=== PATIENT | male | born 1965 | race Caucasian/White ===

== ENCOUNTER 2017-07-08 16:26 | Emergency (ER) | payer OTHER ==
[~2017-07-08] VITALS: Ht 180.3 cm; Wt 122.5 kg
[~2017-07-08 16:26] MED LIST: ALPR.5 PO; Cleocin HCl150 MG PO; DOCU100 PO; ETOD200 PO; GABA300 PO; Norco 5-325 Ta1 EACH PO; OXYC5 PO; XARELTO10 MG PO; Zofran Odt4 MG SL
[2017-07-08 17:10] LABS: BASOPHILS ABSOLUTE AUTO 0.03 K/mm3 (0.00-0.23); BASOPHILS PERCENT AUTO 1 % (0-2); EOSINOPHILS ABSOLUTE AUTO 0.14 K/mm3 (0.00-0.68); EOSINOPHILS PERCENT AUTO 3 % (0-6); Hematocrit 39.9 % (37.0-53.0); Hemoglobin 13.9 g/dL (13.5-17.5); IMMATURE GRAN ABSOLUTE AUTO 0.01 K/mm3 (0.00-0.10); IMMATURE GRAN PERCENT AUTO 0 % (0-1); LYMPHOCYTES ABSOLUTE AUTO 1.24 K/mm3 (0.84-5.20); LYMPHOCYTES PERCENT AUTO 28 % (21-46); MONOCYTES ABSOLUTE AUTO 0.29 K/mm3 (0.16-1.47); MONOCYTES PERCENT AUTO 7 % (4-13); Mean Corpuscular HGB 32.7 pg (26.0-34.0); Mean Corpuscular HGB Conc 34.8 g/dL (31.5-36.5); Mean Corpuscular Volume 94 fL (80-100); Mean Platelet Volume 11.1 fL (9.1-12.4); NEUTROPHILS ABSOLUTE AUTO 2.65 K/mm3 (1.96-9.15); NEUTROPHILS PERCENT AUTO 61 % (41-73); Platelet Count 52 K/mm3 (150-400); RDW Coefficient Variation 14.3 % (11.7-14.2); RDW Standard Deviation 48.9 fL (35.1-46.3); Red Blood Cell Count 4.25 M/mm3 (4.30-5.90); White Blood Cell Count 4.36 K/mm3 (4.00-11.30)
[2017-07-08 17:25] LABS: Alanine Aminotransfer (ALT/SGP 186 U/L (12-78); Albumin, Blood 3.1 g/dL (3.4-5.0); Albumin/Globulin Ratio 0.7 (0.8-1.8); Alk Phos 140 U/L (50-136); Anion Gap 10 mmol/L (6-16); Aspartate Aminotrans (AST/SGOT 153 U/L (12-37); Bilirubin, Total 0.7 mg/dL (0.1-1.0); Blood Urea Nitrogen 10 mg/dL (8-24); Bun/Creatinine Ratio 11.9 (12.0-20.0); CO2, Blood 24 mmol/L (21-32); Calcium, Blood 8.2 mg/dL (8.5-10.1); Chloride, Blood 108 mmol/L (98-108); Creatinine, Blood 0.84 mg/dL (0.60-1.20); Globulin, Blood 4.6 g/dL (2.2-4.0); Glomerular Filtration Rate >60 (60-); Glucose, Blood 116 mg/dL (70-99); Potassium, Blood 3.5 mmol/L (3.5-5.5); Sodium, Blood 142 mmol/L (136-145); Total Protein, Blood 7.7 g/dL (6.4-8.2); Troponin I <0.015 ng/mL (0.000-0.040)
[2017-09-11] MEDS ORDERED: DICL25ER (13:58)
[2017-09-11] MEDS ORDERED: ALBU90OI61 (13:58)
[2017-09-11] MEDS ORDERED: ALLO100 (13:59)
[2017-09-11] MEDS ORDERED: OMEPRAZOLE MAGN20 MG (13:59)
[2018-05-01] MEDS ORDERED: ASPI81CH PO (23:40)
[2018-05-02] MEDS ORDERED: BENZ100A PO (00:33)
[2018-05-02] MEDS ORDERED: LEVO750 PO (00:33)
== END 2017-07-08 19:31 | disposition home or self-care (01) ==
LOC: ER 16:26
PROVIDERS: Emergency Medicine
DX: K74.60 Unspecified cirrhosis of liver (principal); K76.6 Portal hypertension; R00.2 Palpitations; R74.0 Nonspecific elevation of levels of transaminase and lactic acid dehydrogenase [LDH]; Z88.8 Allergy status to other drugs, medicaments and biological substances; Z88.5 Allergy status to narcotic agent; Z87.891 Personal history of nicotine dependence
CPT/HCPCS: 36415; 71046; 71260; 74160; 80053; 83690; 84484; 85025; 93005; 93010; 99284; Q9967

== ENCOUNTER 2017-09-19 10:43 | Day surgery (SDC) | payer OTHER ==
[~2017-09-19] VITALS: Ht 180.3 cm; Wt 137.6 kg
[~2017-09-19 10:43] MED LIST changes: +ALBU90OI61; +ALLO100; +DICL25ER; +OMEPRAZOLE MAGN20 MG
[2018-05-01] MEDS ORDERED: ASPI81CH PO (23:40)
[2018-05-02] MEDS ORDERED: BENZ100A PO (00:33)
[2018-05-02] MEDS ORDERED: LEVO750 PO (00:33)
== END 2017-09-19 12:26 | disposition home or self-care (01) ==
LOC: ORSCSDS 10:43
PROVIDERS: Internal Medicine Gastroenterology
PROC: 0DB68ZX Excision of Stomach, Via Natural or Artificial Opening Endoscopic, Diagnostic (ICD-10-PCS; principal; 2017-09-19 12:15)
DX: K74.60 Unspecified cirrhosis of liver (principal); I85.00 Esophageal varices without bleeding; B96.81 Helicobacter pylori [H. pylori] as the cause of diseases classified elsewhere; K29.70 Gastritis, unspecified, without bleeding; K31.9 Disease of stomach and duodenum, unspecified; B19.20 Unspecified viral hepatitis C without hepatic coma; K92.1 Melena; J44.9 Chronic obstructive pulmonary disease, unspecified; Z87.891 Personal history of nicotine dependence; Z68.41 Body mass index [BMI] 40.0-44.9, adult; E66.01 Morbid (severe) obesity due to excess calories; Z79.899 Other long term (current) drug therapy
CPT/HCPCS: 88305; 88342; J7120

== ENCOUNTER → 2018-02-14 | Outpatient (CLI) | payer OTHER | LOC: LAB SHORT 11:00 → LAB 11:00 | DX: F22 Delusional disorders (principal); R10.13 Epigastric pain | CPT/HCPCS: 87338 ==

== ENCOUNTER → 2018-10-15 | Outpatient (CLI) | payer OTHER ==
[~2018-10-15] MED LIST changes: +ASPI81CH PO; +BENZ100A PO; +LEVO750 PO
== END | disposition home or self-care (01) ==
LOC: LAB SHORT 15:47 → LAB 15:47 → LAB FUT 10-11 15:35
DX: F22 Delusional disorders (principal)
CPT/HCPCS: 87177; 87209

== ENCOUNTER 2019-06-11 18:59 | Emergency (ER) | payer OTHER ==
[~2019-06-11] VITALS: Ht 180.3 cm; Wt 140.2 kg
[2019-06-11 19:46] LABS: BASOPHILS ABSOLUTE AUTO 0.04 K/mm3 (0.00-0.23); BASOPHILS PERCENT AUTO 1 % (0-2); EOSINOPHILS ABSOLUTE AUTO 0.19 K/mm3 (0.00-0.68); EOSINOPHILS PERCENT AUTO 3 % (0-6); Hematocrit 44.4 % (37.0-53.0); Hemoglobin 15.5 g/dL (13.5-17.5); IMMATURE GRAN ABSOLUTE AUTO 0.02 K/mm3 (0.00-0.10); IMMATURE GRAN PERCENT AUTO 0 % (0-1); LYMPHOCYTES ABSOLUTE AUTO 1.43 K/mm3 (0.84-5.20); LYMPHOCYTES PERCENT AUTO 25 % (21-46); MONOCYTES ABSOLUTE AUTO 0.29 K/mm3 (0.16-1.47); MONOCYTES PERCENT AUTO 5 % (4-13); Mean Corpuscular HGB 32.6 pg (26.0-34.0); Mean Corpuscular HGB Conc 34.9 g/dL (31.5-36.5); Mean Corpuscular Volume 93 fL (80-100); Mean Platelet Volume 11.5 fL (9.1-12.4); NEUTROPHILS ABSOLUTE AUTO 3.87 K/mm3 (1.96-9.15); NEUTROPHILS PERCENT AUTO 66 % (41-73); RDW Coefficient Variation 13.9 % (11.7-14.2); RDW Standard Deviation 47.5 fL (35.1-46.3); Red Blood Cell Count 4.76 M/mm3 (4.30-5.90); White Blood Cell Count 5.84 K/mm3 (4.00-11.30)
[2019-06-11] MEDS ORDERED: RIFA550T2 PO (19:49)
[2019-06-11] MEDS ORDERED: PRINIVIL10 MG PO (19:49)
[2019-06-11 20:06] LABS: Alanine Aminotransfer (ALT/SGP 77 U/L (12-78); Albumin, Blood 3.7 g/dL (3.4-5.0); Albumin/Globulin Ratio 0.8 (0.8-1.8); Alk Phos 105 U/L (50-136); Anion Gap 7 mmol/L (6-16); Aspartate Aminotrans (AST/SGOT 60 U/L (12-37); Bilirubin, Total 1.3 mg/dL (0.1-1.0); Blood Urea Nitrogen 12 mg/dL (8-24); Bun/Creatinine Ratio 14.1 (12.0-20.0); CO2, Blood 25 mmol/L (21-32); Calcium, Blood 8.9 mg/dL (8.5-10.1); Chloride, Blood 110 mmol/L (98-108); Creatinine, Blood 0.85 mg/dL (0.60-1.20); Ethanol (Alcohol), Blood, Med <3 mg/dL; Globulin, Blood 4.4 g/dL (2.2-4.0); Glomerular Filtration Rate >60 (60-); Glucose, Blood 126 mg/dL (70-99); Potassium, Blood 3.7 mmol/L (3.5-5.5); Sodium, Blood 142 mmol/L (136-145); Total Protein, Blood 8.1 g/dL (6.4-8.2)
[2019-06-11 20:10] LABS: Platelet Count 48 K/mm3 (150-400)
== END 2019-06-11 21:34 | disposition home or self-care (01) ==
LOC: ER 18:59
PROVIDERS: Physician Assistant
DX: F15.950 Other stimulant use, unspecified with stimulant-induced psychotic disorder with delusions (principal); K42.9 Umbilical hernia without obstruction or gangrene; K74.60 Unspecified cirrhosis of liver; Z87.891 Personal history of nicotine dependence; Z88.5 Allergy status to narcotic agent; Z88.8 Allergy status to other drugs, medicaments and biological substances; Z79.82 Long term (current) use of aspirin; Z79.899 Other long term (current) drug therapy
CPT/HCPCS: 36415; 71045; 74018; 80053; 83690; 85025; 96360; 99283-25; G0480; J7030

== ENCOUNTER 2023-08-01 15:19 | Inpatient (IN) | payer OTHER ==
[~2023-08-01] VITALS: Ht 180.3 cm; Wt 114.3 kg
[~2023-08-01 15:19] MED LIST changes: +Norco 10-325 T1 EACH PO; +PRINIVIL10 MG PO; +RIFA550T2 PO
[2023-08-01 15:57] LABS: BASOPHILS ABSOLUTE AUTO 0.03 K/mm3 (0.00-0.23); BASOPHILS PERCENT AUTO 1 % (0-2); EOSINOPHILS PERCENT AUTO 3 % (0-6); Hematocrit 42.6 % (37.0-53.0); Hemoglobin 14.9 g/dL (13.5-17.5); IMMATURE GRAN ABSOLUTE AUTO 0.01 K/mm3 (0.00-0.10); IMMATURE GRAN PERCENT AUTO 0 % (0-1); LYMPHOCYTES ABSOLUTE AUTO 0.51 K/mm3 (0.84-5.20); LYMPHOCYTES PERCENT AUTO 14 % (21-46); MONOCYTES ABSOLUTE AUTO 0.17 K/mm3 (0.16-1.47); MONOCYTES PERCENT AUTO 5 % (4-13); Mean Corpuscular HGB 31.8 pg (26.0-34.0); Mean Corpuscular Volume 91 fL (80-100); Mean Platelet Volume 11.7 fL (9.1-12.4); NEUTROPHILS ABSOLUTE AUTO 2.83 K/mm3 (1.96-9.15); NEUTROPHILS PERCENT AUTO 78 % (41-73); RDW Coefficient Variation 14.5 % (11.7-14.2); RDW Standard Deviation 47.6 fL (35.1-46.3); Red Blood Cell Count 4.69 M/mm3 (4.30-5.90); White Blood Cell Count 3.65 K/mm3 (4.00-11.30)
[2023-08-01 16:14] LABS: Albumin, Blood 3.2 g/dL (3.4-5.0); Albumin/Globulin Ratio 0.7 (0.8-1.8); Bilirubin, Total 0.8 mg/dL (0.1-1.0); Bun/Creatinine Ratio 11.9 (12.0-20.0); Calcium, Blood 9.4 mg/dL (8.5-10.1); Creatinine, Blood 0.68 mg/dL (0.60-1.20); Globulin, Blood 4.3 g/dL (2.2-4.0); Potassium, Blood 3.7 mmol/L (3.5-5.5); Total Protein, Blood 7.5 g/dL (6.4-8.2)
[2023-08-01 16:19] LABS: Platelet Count 47 K/mm3 (150-400)
[2023-08-01] MEDS ORDERED: NS 1,000 ML IV SCH (18:15)
[2023-08-01] MEDS ORDERED: Metoclopramide HCl 5MG / ML 2ML Vial IV ONE (18:15)
[2023-08-01 18:37] LABS: Base Excess Venous -0.3 mmol/L; Bicarbonate Venous 24.4 mmol/L (24.0-30.0); PCO2 Venous 36.7 mmHg (38-42); pH Blood Venous 7.43 (7.34-7.37)
[2023-08-01 18:51] LABS: Source, Urine Clean Catch
[2023-08-01 18:59] LABS: Appearance, Urine Clear (Clear); Bilirubin, Urine Neg (Neg); Blood, Urine Neg (Neg); Color, Urine Yellow (P-Yellow); Glucose Qualitative, Urine Neg (Neg); Ketones, Urine Neg (Neg); Leukocyte Esterase, Urine Neg (Neg); Nitrite, Urine Neg (Neg); Protein, Urine Neg (Neg); Specific Gravity, Urine 1.015 (1.003-1.022); Urobilinogen, Urine NORM (Normal)
[2023-08-01] MEDS ORDERED: FentaNYL Citrate 50 MCG/ML 2 ML Injection IV ONE (20:15)
[2023-08-01] MEDS ORDERED: Clarify Drug Order XX ONE (20:40)
[2023-08-01] MEDS ORDERED: FLU VACC QS2023-24(6MOS UP)/PF 60 MCG/0.5 ML SYRINGE IM SCH (20:45)
[2023-08-01] MEDS ORDERED: FentaNYL Citrate 50 MCG/ML 2 ML Injection IV PRN ×2 (20:50→23:40)
[2023-08-01 20:51] LABS: International Normalized Ratio 1.16; Prothrombin Time Results 12.1 Sec (9.7-11.5)
[2023-08-01] MEDS ORDERED: Lactated Ringer's 1,000 ML IV SCH (21:00)
[2023-08-01 22:17] VITALS: BP 126/85
[2023-08-01] MEDS ORDERED: Metoclopramide HCl 5MG / ML 2ML Vial IV PRN (22:40)
[2023-08-01] MEDS ORDERED: Enoxaparin 40 MG/0.4 ML SYR SC SCH (23:00)
--- NOTE | 2023-08-02 03:51 | NUR ---
SHIFT SUMMERY. PT RSTING IN BED, TRYING TO SLEEP. PT CRISTOPHER UP IN W/C AND WAS ABLE TO TRANSFER HIMSELF TO BED. LATER PT AMBULATED WITH ASSIST TO BR. SCDS PLACED ON PTS LEGS. PT WAS MEDICTAED FOR PAIN AND ORALSWABS GIVNE TO PT WHO IS NPO AT THIS TIME. CALL LIGHT IN REACH.
[2023-08-02 04:22] VITALS: BP 110/78
[2023-08-02 06:07] LABS: BASOPHILS ABSOLUTE AUTO 0.02 K/mm3 (0.00-0.23); BASOPHILS PERCENT AUTO 1 % (0-2); EOSINOPHILS ABSOLUTE AUTO 0.11 K/mm3 (0.00-0.68); EOSINOPHILS PERCENT AUTO 4 % (0-6); Hematocrit 38.7 % (37.0-53.0); Hemoglobin 13.2 g/dL (13.5-17.5); IMMATURE GRAN ABSOLUTE AUTO 0.01 K/mm3 (0.00-0.10); IMMATURE GRAN PERCENT AUTO 0 % (0-1); LYMPHOCYTES ABSOLUTE AUTO 0.67 K/mm3 (0.84-5.20); LYMPHOCYTES PERCENT AUTO 23 % (21-46); MONOCYTES ABSOLUTE AUTO 0.18 K/mm3 (0.16-1.47); MONOCYTES PERCENT AUTO 6 % (4-13); Mean Corpuscular HGB 31.5 pg (26.0-34.0); Mean Corpuscular HGB Conc 34.1 g/dL (31.5-36.5); Mean Corpuscular Volume 92 fL (80-100); NEUTROPHILS ABSOLUTE AUTO 1.91 K/mm3 (1.96-9.15); NEUTROPHILS PERCENT AUTO 66 % (41-73); RDW Coefficient Variation 14.5 % (11.7-14.2); RDW Standard Deviation 49.2 fL (35.1-46.3); Red Blood Cell Count 4.19 M/mm3 (4.30-5.90)
[2023-08-02 06:10] LABS: Platelet Count 40 K/mm3 (150-400)
[2023-08-02 06:25] LABS: Albumin, Blood 2.8 g/dL (3.4-5.0); Albumin/Globulin Ratio 0.8 (0.8-1.8); Bilirubin, Total 1.1 mg/dL (0.1-1.0); Bun/Creatinine Ratio 11.6 (12.0-20.0); Calcium, Blood 8.4 mg/dL (8.5-10.1); Creatinine, Blood 0.69 mg/dL (0.60-1.20); Globulin, Blood 3.7 g/dL (2.2-4.0); Potassium, Blood 3.3 mmol/L (3.5-5.5); Total Protein, Blood 6.5 g/dL (6.4-8.2)
[2023-08-02 06:39] LABS: BAND PERCENT MAN 1 % (0-8); BASOPHILS PERCENT MAN 0 % (0-2); EOSINOPHILS ABSOLUTE MAN 0.05 K/mm3 (0.00-0.68); EOSINOPHILS PERCENT MAN 2 % (0-6); LYMPHOCYTES ABSOLUTE MAN 0.52 K/mm3 (0.84-5.20); LYMPHOCYTES PERCENT MAN 18 % (21-46); MONOCYTES ABSOLUTE MAN 0.14 K/mm3 (0.16-1.47); MONOCYTES PERCENT MAN 5 % (4-13); NEUTROPHILS ABSOLUTE MAN 2.17 K/mm3 (1.96-9.15); SEG NEUTROPHILS PERCENT MAN 74 % (41-73); TOTAL CELLS COUNTED 100
[2023-08-02 07:23] VITALS: BP 121/81
[2023-08-02] MEDS ORDERED: Pantoprazole Sodium 40 MG Injection IV SCH (08:00)
[2023-08-02] MEDS ORDERED: Piperacillin/Tazobactam Sod 3.375 GM in NS 50 ML IV SCH (10:00)
[2023-08-02] MEDS ORDERED: Heparin Sodium,Porcine/0.5 NS 500 ML IV SCH (10:25)
[2023-08-02] MEDS ORDERED: Dose Adjust by Pharmacy XX STA (10:25)
[2023-08-02] MEDS ORDERED: NS 250 ML IV PRN (10:55)
[2023-08-02 12:18] LABS: BASOPHILS ABSOLUTE AUTO 0.01 K/mm3 (0.00-0.23); BASOPHILS PERCENT AUTO 0 % (0-2); EOSINOPHILS ABSOLUTE AUTO 0.09 K/mm3 (0.00-0.68); EOSINOPHILS PERCENT AUTO 3 % (0-6); Hematocrit 38.8 % (37.0-53.0); Hemoglobin 13.4 g/dL (13.5-17.5); IMMATURE GRAN ABSOLUTE AUTO 0.01 K/mm3 (0.00-0.10); IMMATURE GRAN PERCENT AUTO 0 % (0-1); LYMPHOCYTES PERCENT AUTO 21 % (21-46); MONOCYTES ABSOLUTE AUTO 0.16 K/mm3 (0.16-1.47); MONOCYTES PERCENT AUTO 6 % (4-13); Mean Corpuscular HGB 31.8 pg (26.0-34.0); Mean Corpuscular HGB Conc 34.5 g/dL (31.5-36.5); Mean Corpuscular Volume 92 fL (80-100); Mean Platelet Volume 11.7 fL (9.1-12.4); NEUTROPHILS ABSOLUTE AUTO 1.94 K/mm3 (1.96-9.15); NEUTROPHILS PERCENT AUTO 69 % (41-73); RDW Coefficient Variation 14.4 % (11.7-14.2); RDW Standard Deviation 48.4 fL (35.1-46.3); Red Blood Cell Count 4.21 M/mm3 (4.30-5.90); White Blood Cell Count 2.81 K/mm3 (4.00-11.30)
[2023-08-02 12:23] LABS: Platelet Count 39 K/mm3 (150-400)
[2023-08-02 14:54] VITALS: BP 111/72
[2023-08-02 15:13] VITALS: BP 104/72
--- NOTE | 2023-08-02 16:43 | NUR ---
SHIFT SUMMARY: CHOLECYSTOSTOMY (URACIL) DRAIN PLACED IN RLQ, HAS MOD AMT DARK BROWN LIQUID IN DRAIN. C/O PAIN IN UPPER ABDOMEN, WHICH IS DISTENDED; MEDICATED PER EMAR WITH ADEQUATE BUT SHORT-LIVED RELIEF. AMBULATING TO BR INDEPENDENTLY, SBA IF AFTER PAIN MED ADMINISTRATION. C/O HUNGER, BUT NPO STATUS TO CONTINUE PER DR. WHEAT. HEPARIN GTT TO START TONIGHT AFTER 1900.
[2023-08-02 17:04] VITALS: BP 106/67
[2023-08-02 22:24] LABS: BASOPHILS ABSOLUTE AUTO 0.02 K/mm3 (0.00-0.23); BASOPHILS PERCENT AUTO 1 % (0-2); EOSINOPHILS PERCENT AUTO 3 % (0-6); Hematocrit 36.9 % (37.0-53.0); Hemoglobin 12.9 g/dL (13.5-17.5); IMMATURE GRAN ABSOLUTE AUTO 0.01 K/mm3 (0.00-0.10); IMMATURE GRAN PERCENT AUTO 0 % (0-1); LYMPHOCYTES ABSOLUTE AUTO 0.65 K/mm3 (0.84-5.20); LYMPHOCYTES PERCENT AUTO 21 % (21-46); MONOCYTES ABSOLUTE AUTO 0.19 K/mm3 (0.16-1.47); MONOCYTES PERCENT AUTO 6 % (4-13); Mean Corpuscular HGB 32.2 pg (26.0-34.0); Mean Corpuscular Volume 92 fL (80-100); Mean Platelet Volume 11.6 fL (9.1-12.4); NEUTROPHILS ABSOLUTE AUTO 2.15 K/mm3 (1.96-9.15); NEUTROPHILS PERCENT AUTO 69 % (41-73); RDW Coefficient Variation 14.2 % (11.7-14.2); RDW Standard Deviation 48.3 fL (35.1-46.3); Red Blood Cell Count 4.01 M/mm3 (4.30-5.90); White Blood Cell Count 3.12 K/mm3 (4.00-11.30)
[2023-08-02 22:33] LABS: Platelet Count 37 K/mm3 (150-400)
[2023-08-03 01:58] LABS: BASOPHILS ABSOLUTE AUTO 0.03 K/mm3 (0.00-0.23); BASOPHILS PERCENT AUTO 1 % (0-2); EOSINOPHILS ABSOLUTE AUTO 0.07 K/mm3 (0.00-0.68); EOSINOPHILS PERCENT AUTO 3 % (0-6); Hematocrit 37.3 % (37.0-53.0); Hemoglobin 12.8 g/dL (13.5-17.5); IMMATURE GRAN ABSOLUTE AUTO 0.02 K/mm3 (0.00-0.10); IMMATURE GRAN PERCENT AUTO 1 % (0-1); LYMPHOCYTES ABSOLUTE AUTO 0.59 K/mm3 (0.84-5.20); LYMPHOCYTES PERCENT AUTO 21 % (21-46); MONOCYTES ABSOLUTE AUTO 0.21 K/mm3 (0.16-1.47); MONOCYTES PERCENT AUTO 7 % (4-13); Mean Corpuscular HGB 31.8 pg (26.0-34.0); Mean Corpuscular HGB Conc 34.3 g/dL (31.5-36.5); Mean Corpuscular Volume 93 fL (80-100); Mean Platelet Volume 12.2 fL (9.1-12.4); NEUTROPHILS ABSOLUTE AUTO 1.92 K/mm3 (1.96-9.15); NEUTROPHILS PERCENT AUTO 68 % (41-73); RDW Coefficient Variation 14.1 % (11.7-14.2); RDW Standard Deviation 47.9 fL (35.1-46.3); Red Blood Cell Count 4.03 M/mm3 (4.30-5.90); White Blood Cell Count 2.84 K/mm3 (4.00-11.30)
[2023-08-03 02:10] LABS: Platelet Count 36 K/mm3 (150-400)
[2023-08-03 02:13] LABS: Albumin, Blood 2.8 g/dL (3.4-5.0); Albumin/Globulin Ratio 0.8 (0.8-1.8); Bilirubin, Total 1.4 mg/dL (0.1-1.0); Calcium, Blood 7.7 mg/dL (8.5-10.1); Creatinine, Blood 0.77 mg/dL (0.60-1.20); Globulin, Blood 3.6 g/dL (2.2-4.0); Potassium, Blood 3.4 mmol/L (3.5-5.5); Total Protein, Blood 6.4 g/dL (6.4-8.2)
[2023-08-03] MEDS ORDERED: Dose Adjust by Pharmacy XX STA ×2 (02:13→15:43)
[2023-08-03 04:44] VITALS: BP 127/78
--- NOTE | 2023-08-03 06:46 | NUR ---
Shift Summary: Patient is alert and oriented. He slept sporadically throughout the night. He required PRN IV pain medication several times due to complaint of pain in his right side. He sat up on the side of the bed for a while. Tolerated well. Drain to right side is intact with a small amount of red drainage noted.
[2023-08-03 08:14] VITALS: BP 103/58
--- NOTE | 2023-08-03 12:34 | NUR ---
REPORT GIVEN TO MANASA GARY RN WHO ASSUMES CARE AT THIS TIME
[2023-08-03 16:37] VITALS: BP 100/53
--- NOTE | 2023-08-03 17:24 | NUR ---
DAYSHIFT SUMMARY Assumed care at 1200, handoff report given by Deb HERNANDEZ. Patient alert & oriented X2-3. Patient has mesenteric clot, the plan is to remain NPO, continue Hep gtt, and rescan ABD in the am. S/p Jordana drain in RLQ, bloody drainage noted, dressing at drain site is CDI. Patient is report diffuse abdominal pain that is aching, spasms that seems to be progressing. RN called Dr. Saenz, reported symptoms, and patient's request for increase in pain medication dose. MD stated he would review chart, and no new orders at this time. Vitals stable, afebrile. Pharmacy to dose hep, new bag & rate changed, 2nd RN verified. Will continue plan of care.
[2023-08-03] MEDS ORDERED: NS 50 ML IV ONE (17:26)
[2023-08-03] MEDS ORDERED: HYDROmorphone HCl/Pf 1MG SYR IV PRN (17:40)
[2023-08-03 19:46] VITALS: BP 125/75
[2023-08-03] MEDS ORDERED: NS 0 ML IV ONE (23:18)
[2023-08-04 02:56] VITALS: BP 120/73
[2023-08-04 05:04] LABS: BASOPHILS ABSOLUTE AUTO 0.02 K/mm3 (0.00-0.23); BASOPHILS PERCENT AUTO 1 % (0-2); EOSINOPHILS ABSOLUTE AUTO 0.08 K/mm3 (0.00-0.68); EOSINOPHILS PERCENT AUTO 3 % (0-6); Hematocrit 38.7 % (37.0-53.0); Hemoglobin 13.8 g/dL (13.5-17.5); IMMATURE GRAN ABSOLUTE AUTO 0.01 K/mm3 (0.00-0.10); IMMATURE GRAN PERCENT AUTO 0 % (0-1); LYMPHOCYTES ABSOLUTE AUTO 0.62 K/mm3 (0.84-5.20); LYMPHOCYTES PERCENT AUTO 22 % (21-46); MONOCYTES ABSOLUTE AUTO 0.19 K/mm3 (0.16-1.47); MONOCYTES PERCENT AUTO 7 % (4-13); Mean Corpuscular HGB 31.9 pg (26.0-34.0); Mean Corpuscular HGB Conc 35.7 g/dL (31.5-36.5); Mean Corpuscular Volume 90 fL (80-100); Mean Platelet Volume 12.8 fL (9.1-12.4); NEUTROPHILS ABSOLUTE AUTO 1.86 K/mm3 (1.96-9.15); NEUTROPHILS PERCENT AUTO 67 % (41-73); RDW Coefficient Variation 13.9 % (11.7-14.2); RDW Standard Deviation 45.7 fL (35.1-46.3); Red Blood Cell Count 4.32 M/mm3 (4.30-5.90); White Blood Cell Count 2.78 K/mm3 (4.00-11.30)
[2023-08-04 05:11] LABS: Platelet Count 33 K/mm3 (150-400)
[2023-08-04 05:22] LABS: Albumin, Blood 2.9 g/dL (3.4-5.0); Albumin/Globulin Ratio 0.7 (0.8-1.8); Bilirubin, Total 1.3 mg/dL (0.1-1.0); Bun/Creatinine Ratio 12.1 (12.0-20.0); Calcium, Blood 8.3 mg/dL (8.5-10.1); Creatinine, Blood 0.74 mg/dL (0.60-1.20); Globulin, Blood 3.9 g/dL (2.2-4.0); Potassium, Blood 3.5 mmol/L (3.5-5.5); Total Protein, Blood 6.8 g/dL (6.4-8.2)
--- NOTE | 2023-08-04 07:19 | NUR ---
SHIFT SUMMARY PT A&OX3. PT C/O PAIN AND NAUSEA T/O NIGHT. MEDICATED PER EMAR WITH REGLAN AND DILAUDED. PT NPO AND STATED HE HAS NOT HAD ANY FOOD INTAKE FOR 4 DAYS. CONTINUING HEPARINE INFUSINE AND NO CHANGES MADE BY PHARMACY. IV ABX ADMINISTERED PER EMAR. CRITICAL PLT COUNT OF 33 HOWEVER, PT'S PLT HAVE BEEN CRITICAL SINCE THE 08/01/23. 20ML OF BRIGHT RED FLUID EMPTIED FROM ABD DRAIN. PT SLEPT VERY LITTLE T/O NIGHT. VSS. PT PT HAD ONE EPISODE OF VOMITTING AT CHANGE OF SHIFT THIS MORNING. BED IN LOWEST POSITION AND CALL LIGHT IN REACH.
[2023-08-04 08:27] VITALS: BP 109/78
[2023-08-04] MEDS ORDERED: Ondansetron HCl 2 MG / ML 2ML Vial IV PRN (08:50)
[2023-08-04 14:36] VITALS: BP 135/76
[2023-08-04] MEDS ORDERED: Spironolactone 50 MG Tab PO SCH (15:00)
[2023-08-04] MEDS ORDERED: Furosemide 10 MG/ML 4ML Vial IV SCH (15:00)
[2023-08-04] MEDS ORDERED: Furosemide 20 MG Tab PO SCH (15:00)
[2023-08-04] MEDS ORDERED: Propranolol HCL 20 MG TAB PO SCH (16:30)
--- NOTE | 2023-08-04 17:28 | NUR ---
PT IS AOX4 AND COOPERATIVE OF CARE. PT IS ABLE TO MAKE NEEDS KNOWN. TREATED FOR PAIN PER EMAR. PT INDEPENDENT IN ROOM CALL LIGHT WITHIN REACH WILL CONTINUE TO MONITOR.
[2023-08-04 18:20] LABS: BASOPHILS ABSOLUTE AUTO 0.01 K/mm3 (0.00-0.23); BASOPHILS PERCENT AUTO 0 % (0-2); EOSINOPHILS ABSOLUTE AUTO 0.07 K/mm3 (0.00-0.68); EOSINOPHILS PERCENT AUTO 3 % (0-6); Hematocrit 39.4 % (37.0-53.0); Hemoglobin 13.8 g/dL (13.5-17.5); IMMATURE GRAN ABSOLUTE AUTO 0.01 K/mm3 (0.00-0.10); IMMATURE GRAN PERCENT AUTO 0 % (0-1); LYMPHOCYTES ABSOLUTE AUTO 0.55 K/mm3 (0.84-5.20); LYMPHOCYTES PERCENT AUTO 19 % (21-46); MONOCYTES ABSOLUTE AUTO 0.19 K/mm3 (0.16-1.47); MONOCYTES PERCENT AUTO 7 % (4-13); Mean Corpuscular HGB 31.7 pg (26.0-34.0); Mean Corpuscular Volume 91 fL (80-100); Mean Platelet Volume 10.9 fL (9.1-12.4); NEUTROPHILS PERCENT AUTO 71 % (41-73); RDW Coefficient Variation 13.8 % (11.7-14.2); RDW Standard Deviation 46.3 fL (35.1-46.3); Red Blood Cell Count 4.35 M/mm3 (4.30-5.90); White Blood Cell Count 2.83 K/mm3 (4.00-11.30)
[2023-08-04 18:23] LABS: Platelet Count 35 K/mm3 (150-400)
[2023-08-04 20:01] VITALS: BP 124/77
[2023-08-05 03:20] LABS: BASOPHILS ABSOLUTE AUTO 0.01 K/mm3 (0.00-0.23); BASOPHILS PERCENT AUTO 0 % (0-2); EOSINOPHILS ABSOLUTE AUTO 0.07 K/mm3 (0.00-0.68); EOSINOPHILS PERCENT AUTO 3 % (0-6); Hematocrit 37.8 % (37.0-53.0); Hemoglobin 13.2 g/dL (13.5-17.5); IMMATURE GRAN PERCENT AUTO 0 % (0-1); LYMPHOCYTES ABSOLUTE AUTO 0.57 K/mm3 (0.84-5.20); LYMPHOCYTES PERCENT AUTO 21 % (21-46); MONOCYTES ABSOLUTE AUTO 0.25 K/mm3 (0.16-1.47); MONOCYTES PERCENT AUTO 9 % (4-13); Mean Corpuscular HGB 31.6 pg (26.0-34.0); Mean Corpuscular HGB Conc 34.9 g/dL (31.5-36.5); Mean Corpuscular Volume 90 fL (80-100); Mean Platelet Volume 12.1 fL (9.1-12.4); NEUTROPHILS ABSOLUTE AUTO 1.84 K/mm3 (1.96-9.15); NEUTROPHILS PERCENT AUTO 67 % (41-73); RDW Coefficient Variation 14.2 % (11.7-14.2); Red Blood Cell Count 4.18 M/mm3 (4.30-5.90); White Blood Cell Count 2.74 K/mm3 (4.00-11.30)
[2023-08-05 03:39] LABS: Albumin, Blood 2.7 g/dL (3.4-5.0); Albumin/Globulin Ratio 0.8 (0.8-1.8); Bilirubin, Total 0.9 mg/dL (0.1-1.0); Calcium, Blood 7.9 mg/dL (8.5-10.1); Creatinine, Blood 0.9 mg/dL (0.60-1.20); Globulin, Blood 3.6 g/dL (2.2-4.0); Potassium, Blood 3.6 mmol/L (3.5-5.5); Total Protein, Blood 6.3 g/dL (6.4-8.2)
[2023-08-05 03:50] LABS: Platelet Count 39 K/mm3 (150-400)
[2023-08-05 03:57] VITALS: BP 113/71
--- NOTE | 2023-08-05 05:15 | NUR ---
SHIFT SUMMARY PT A&OX4. PT STATED HE IS TOLERATING PO INTAKE AND ASKED FOR A SANDWICH A COUPLE TIMES DURING THE NIGHT. MEDICATED T/O NIGHT FOR PAIN AND MILD NAUSEA. IV ABX GIVEN PER EMAR. CONTINUING HEPARINE DRIP WITH NO CHANGES. VSS. PT ABLE TO SLEEP FOR A COUPLE HOURS AT A TIME T/O NIGHT. VSS. BED IN LOWEST POSITION AND CALL LIGHT IN REACH.
[2023-08-05 07:34] VITALS: BP 106/74
--- NOTE | 2023-08-05 18:37 | NUR ---
NO ACUTE CHANGES PT AOX4 AD COOPERATIVE OF CARE. PT HAS BEEN INDEPENDENT WITH URINAL. TREATED FOR R QUADRANT PAIN PER EMAR. PT TREATED FOR NAUSEA PER EMAR. CALL LIGHT WITHIN REACH WILL CONTINUE TO MONITOR.
[2023-08-05 19:35] LABS: International Normalized Ratio 1.19; Prothrombin Time Results 12.4 Sec (9.7-11.5)
[2023-08-05] MEDS ORDERED: Warfarin Sodium 5 MG Tab PO ONE (20:00)
[2023-08-05] MEDS ORDERED: HYDROmorphone HCl/Pf 1MG SYR IV PRN (20:05)
[2023-08-05 22:40] VITALS: BP 133/84
[2023-08-06 03:37] VITALS: BP 103/73
[2023-08-06] MEDS ORDERED: Dose Adjust by Pharmacy XX STA ×2 (04:06→11:30)
--- NOTE | 2023-08-06 06:32 | NUR ---
SHIFT SUMMARY: PT IS ADMITTED FOR ACUTE OCCLUSION OF MESENTERIC VEIN AND IS A FULL CODE. IS ALERT AND ABLE TO MAKE NEEDS KNOWN. ADLs HAVE BEEN 1P STANDBY THROUGH OUT SHIFT. HAS BEEN GIVE PRN PAIN MANAGEMENT X1 THIS SHIFT. BOTH IVs TO RIGHT FOREARM ARE PATENT WITH DRESSINGS THAT ARE CDI. ONE IV IS RUINING NS AT KVO DISTAL TO A HEPARIN DRIP THAT STARTED AT 14U/KG/H AND WAS INCREASED TO 15U/KG/H ABOUT ? THROUGH THE SHIFT. HAD COMPLAINT OF STRANGE FEELING GURGLING IN THE AREA OF THE INTERSECTION OF THE TRANSVERSE AND DESCENDING COLON. MASS SLIGHTLY BIGGER THAN A GOLF BALL COULD BE FELT. IMPRESSION OF THIS NURSE WAS FLUID FILLED DUE TO LACK OF SOLID MASS BEING ABLE TO BE FOUND. CREPITUS ALSO NOTED TO THE AREA IMMEDIATELY NEXT TO MASS. MASS IS MOBILE AND NOT VERY DEEP. CHARGE NURSE NOTIFIED AND SHE ACCESS WELL. SHE MADE NOTE THAT CT SCAN WAS DONE ON DAY SHIFT AND REPORTED THAT CT FOUND NOT CHANGES IN COMPARISON TO PRIOR CT. ALSO WAS REPORTED POCKETS OF ASCITES THROUGH OUT ABD. WILL REPORT TO DAY NURSE FOR FIRST MD ROUND.
[2023-08-06 07:40] VITALS: BP 115/66
[2023-08-06 10:46] LABS: Hematocrit 39.3 % (37.0-53.0); Hemoglobin 13.5 g/dL (13.5-17.5); Mean Platelet Volume 12.6 fL (9.1-12.4)
[2023-08-06 11:08] LABS: Platelet Count 37 K/mm3 (150-400)
[2023-08-06 11:26] LABS: Anti-Xa UFH, PHA Monitoring 0.46 IU/mL; International Normalized Ratio 1.2; Prothrombin Time Results 12.5 Sec (9.7-11.5)
[2023-08-06 15:46] VITALS: BP 113/71
[2023-08-06] MEDS ORDERED: Warfarin Sodium 7.5 MG Tab PO SCH (18:00)
--- NOTE | 2023-08-06 18:03 | NUR ---
SHIFT SUMMARY PT AOX4, INDEPENDENT IN THE ROOM. USES CALL LIGHT APPROPRIATELY. MEDICATED FOR PAIN AND NAUSEA PER THE EMAR. BILI DRAIN PATENT AND DRAINING, OUTPUT DOCUMENTED IN THE CHART. NO EVENTS OF VOMITING THIS SHIFT. HEPARIN DRIP RUNNING AND PATENT, PHARMACY IS MONITORING THE RATE. NO CHANGES OF RATE THIS SHIFT. CALL LIGHT WITHIN REACH, BED IN THE LOWEST POSITION. WILL REPORT TO ONCOMING NURSE.
[2023-08-06 20:23] VITALS: BP 142/86
[2023-08-07 03:13] LABS: BASOPHILS ABSOLUTE AUTO 0.02 K/mm3 (0.00-0.23); BASOPHILS PERCENT AUTO 1 % (0-2); EOSINOPHILS ABSOLUTE AUTO 0.11 K/mm3 (0.00-0.68); EOSINOPHILS PERCENT AUTO 4 % (0-6); Hematocrit 37.8 % (37.0-53.0); Hemoglobin 13.2 g/dL (13.5-17.5); IMMATURE GRAN ABSOLUTE AUTO 0.01 K/mm3 (0.00-0.10); IMMATURE GRAN PERCENT AUTO 0 % (0-1); LYMPHOCYTES ABSOLUTE AUTO 0.71 K/mm3 (0.84-5.20); LYMPHOCYTES PERCENT AUTO 23 % (21-46); MONOCYTES ABSOLUTE AUTO 0.22 K/mm3 (0.16-1.47); MONOCYTES PERCENT AUTO 7 % (4-13); Mean Corpuscular HGB 32.1 pg (26.0-34.0); Mean Corpuscular HGB Conc 34.9 g/dL (31.5-36.5); Mean Corpuscular Volume 92 fL (80-100); Mean Platelet Volume 12.4 fL (9.1-12.4); NEUTROPHILS PERCENT AUTO 65 % (41-73); RDW Coefficient Variation 14.6 % (11.7-14.2); RDW Standard Deviation 48.8 fL (35.1-46.3); Red Blood Cell Count 4.11 M/mm3 (4.30-5.90); White Blood Cell Count 3.07 K/mm3 (4.00-11.30)
[2023-08-07 03:28] LABS: Platelet Count 35 K/mm3 (150-400)
[2023-08-07 03:32] LABS: Anti-Xa UFH, PHA Monitoring 0.44 IU/mL; International Normalized Ratio 1.19; Prothrombin Time Results 12.4 Sec (9.7-11.5)
[2023-08-07 03:34] LABS: Albumin, Blood 2.8 g/dL (3.4-5.0); Albumin/Globulin Ratio 0.7 (0.8-1.8); Bilirubin, Total 0.6 mg/dL (0.1-1.0); Bun/Creatinine Ratio 8.6 (12.0-20.0); Calcium, Blood 8.1 mg/dL (8.5-10.1); Creatinine, Blood 0.82 mg/dL (0.60-1.20); Globulin, Blood 3.8 g/dL (2.2-4.0); Potassium, Blood 3.9 mmol/L (3.5-5.5); Total Protein, Blood 6.6 g/dL (6.4-8.2)
[2023-08-07 03:47] VITALS: BP 104/65
--- NOTE | 2023-08-07 06:49 | NUR ---
PATIENT IS ALERT AND ORIENTED, ON ROOM AIR. WITH PIV PATENT AND INTACT. WITH ONGOING HEPARIN DRIP, INFUSING WELL. WALKED AROUND THE HALLWAY. COMPLAINT OF PAIN AND NAUSEA, MEDICATED ACOORDINGLY. CALLS APPROPRIATELY. CALL LIGHT WITHIN PATIENT'S REACH. WILL CONTINUE TO MONITOR
[2023-08-07 07:12] VITALS: BP 107/70
[2023-08-07 14:53] VITALS: BP 100/89
[2023-08-07] MEDS ORDERED: OxyCODONE HCL 5 MG TAB PO PRN ×2 (15:05→22:45)
[2023-08-07] MEDS ORDERED: Warfarin Sodium 5 MG Tab PO SCH (18:00)
--- NOTE | 2023-08-07 18:40 | NUR ---
SHIFT SUMMARY Pt remains A&Ox4 this shift. VSS. Pain managed with current regime. Ambulating in hallway independently. Tolerating diet. Voiding per urinal. Pt states had BM early this am. Drain intact with sangenous output. Heparin gtt with continuous infusion. Coumadin given as ordered. Pt mom at bedside. No further needs id or verbalized.
[2023-08-07 19:31] VITALS: BP 134/79
--- NOTE | 2023-08-07 21:37 | NUR ---
HOSPITALIST CONTACTED. PATIENT C/O PAIN. PATIENTS PAIN HAS RETURNED SINCE PRN PAIN MEDICATION GIVEN AND PATIENT HAS OVER 2.5H UNTIL NEXT AVALIABLE DOSE. THIS RN CONTACTED HOSPITALIST LEONARDO IN REGARDS TO PATIENTS PAIN. LEONARDO MANAGER OCCUPATIONAL ORDERED FOR PATIENT TO HAVE A ONE TIME DOSE OF PO 5MG OXYCODONE NOW AND TO HAVE OXYCODONE 5MG PO Q4H FOR PAIN.
[2023-08-07] MEDS ORDERED: OxyCODONE HCL 5 MG TAB PO ONE (22:45)
[2023-08-08 03:19] LABS: BASOPHILS ABSOLUTE AUTO 0.02 K/mm3 (0.00-0.23); BASOPHILS PERCENT AUTO 1 % (0-2); EOSINOPHILS ABSOLUTE AUTO 0.11 K/mm3 (0.00-0.68); EOSINOPHILS PERCENT AUTO 4 % (0-6); Hematocrit 36.4 % (37.0-53.0); Hemoglobin 12.7 g/dL (13.5-17.5); IMMATURE GRAN ABSOLUTE AUTO 0.01 K/mm3 (0.00-0.10); IMMATURE GRAN PERCENT AUTO 0 % (0-1); LYMPHOCYTES ABSOLUTE AUTO 0.61 K/mm3 (0.84-5.20); LYMPHOCYTES PERCENT AUTO 20 % (21-46); MONOCYTES ABSOLUTE AUTO 0.27 K/mm3 (0.16-1.47); MONOCYTES PERCENT AUTO 9 % (4-13); Mean Corpuscular HGB 32.3 pg (26.0-34.0); Mean Corpuscular HGB Conc 34.9 g/dL (31.5-36.5); Mean Corpuscular Volume 93 fL (80-100); Mean Platelet Volume 12.9 fL (9.1-12.4); NEUTROPHILS PERCENT AUTO 67 % (41-73); RDW Coefficient Variation 14.6 % (11.7-14.2); RDW Standard Deviation 50.3 fL (35.1-46.3); Red Blood Cell Count 3.93 M/mm3 (4.30-5.90); White Blood Cell Count 3.12 K/mm3 (4.00-11.30)
[2023-08-08 03:35] LABS: Anti-Xa UFH, PHA Monitoring 0.27 IU/mL; International Normalized Ratio 1.47; Prothrombin Time Results 15.1 Sec (9.7-11.5)
[2023-08-08 03:37] LABS: Albumin, Blood 2.9 g/dL (3.4-5.0); Albumin/Globulin Ratio 0.8 (0.8-1.8); Bilirubin, Total 0.7 mg/dL (0.1-1.0); Bun/Creatinine Ratio 12.7 (12.0-20.0); Calcium, Blood 8.8 mg/dL (8.5-10.1); Creatinine, Blood 0.71 mg/dL (0.60-1.20); Globulin, Blood 3.7 g/dL (2.2-4.0); Potassium, Blood 3.8 mmol/L (3.5-5.5); Total Protein, Blood 6.6 g/dL (6.4-8.2)
[2023-08-08] MEDS ORDERED: Dose Adjust by Pharmacy XX STA ×3 (03:52→18:06)
[2023-08-08 04:02] LABS: Platelet Count 37 K/mm3 (150-400)
[2023-08-08 04:21] VITALS: BP 116/71
--- NOTE | 2023-08-08 07:24 | NUR ---
SHIFT SUMMARY. PATIENT IS ALERT AND ORIENTED X4. PATIENT C/O PAIN THAT IS UNRELIEVED PER PATIENT BY PO PAIN MEDS. PATIENT SLEPT OFF AND ON TT/O NIGHT. PATIENT IS UNSURE OF PLAN FOR MOVING FORWARD WITH HIS CARE AND WOULD LIKE TO TALK WITH THE DOCTOR DURING THE DAYSHIFT; REPORTED TO DAYSHIFT RN. PATIENT IS PLEASANT AND ABLE TO MAKE HIS NEEDS KNOWN. BED IS LOCKED IN THE LOWEST POSITION WITH CALL LIGHT IN REACH.
[2023-08-08 07:32] VITALS: BP 133/97
[2023-08-08] MEDS ORDERED: HYDROmorphone HCl/Pf 1MG SYR IV PRN (10:45)
[2023-08-08 15:39] VITALS: BP 176/107
[2023-08-08] MEDS ORDERED: Warfarin Sodium 7.5 MG Tab PO SCH (18:00)
--- NOTE | 2023-08-08 18:17 | NUR ---
SHIFT SUMMARY PATIENT ALERT AND INTERACTIVE. YELLING OUT AND CRYING AT TIMES. PATIENT STATES THAT IT IS BECAUSE HIS HIP HURTS BUT THEN POINTS AT DIFFERENT AREAS OF PELVIC AREA AND GROIN WHEN ASKED EACH TIME. PAIN MEDICATIONS ADJUSTED AND DILAUDID IV ADDED WITH NO CHANGE IN PAIN PER PATIENT. CT OF ABDOMEN AND PELVIS DONE. NO SIGNIFICANT FINDINGS. PATIENT ABLE TO WALK TO BATHROOM WITH WALKER. PATIENT STATES PAIN COMES IN WAVES AND HE JUST WANTS TO BE KNOCKED OUT. EDUCATION PROVIDED RELATED TO PAIN AND PAIN MEDICATIONS. PATIENT DENIES ANY STREET DRUG USE BUT ADMITS TO USING SOME MARIJUANA AT HOME. ABD DRAIN DRESSING CHANGED MULTIPLE TIMES DURING THE SHIFT BECAUSE OF LIFTING. PATIENT FIXATED ON DRAIN AND REQUESTING NURSING STAFF TO DRAIN IT WHEN IT GETS TO 200 BECAUSE HE IS SHORT OF BREATH. PROVIDED EDUCATION TO PATIENT RELATED TO DRAIN TUBE. PATIENT DID NOT COMPLAIN OF SHORTNESS OF BREATH AFTER EDUCATION WHEN DRAINAGE OVER 200 IN BAG. PATIENT EASILY AGITATED IF PAIN MEDICATION NOT AVAILABLE. PATIENT TELLING MOTHER TO JUST SHOOT HIM AND GET IT OVERWITH. PATIENT STATING HE CAN'T LIVE LIKE THIS FOR 8 WEEKS. PATIENT NOTED TO HAVE MORE PAIN ISSUES IF FAMILY MEMBERS IN THE ROOM. PATIENT HIGH FALL RISK AND FAMILY NEEDING EDUCATION ON SAFE TRANSFER AND AMBULATION OF PATIENT.
[2023-08-08 20:16] VITALS: BP 151/85
[2023-08-09 00:24] LABS: BASOPHILS ABSOLUTE AUTO 0.02 K/mm3 (0.00-0.23); BASOPHILS PERCENT AUTO 0 % (0-2); EOSINOPHILS ABSOLUTE AUTO 0.02 K/mm3 (0.00-0.68); EOSINOPHILS PERCENT AUTO 0 % (0-6); Hematocrit 37.5 % (37.0-53.0); Hemoglobin 13.3 g/dL (13.5-17.5); IMMATURE GRAN ABSOLUTE AUTO 0.02 K/mm3 (0.00-0.10); IMMATURE GRAN PERCENT AUTO 0 % (0-1); LYMPHOCYTES ABSOLUTE AUTO 0.31 K/mm3 (0.84-5.20); LYMPHOCYTES PERCENT AUTO 6 % (21-46); MONOCYTES ABSOLUTE AUTO 0.25 K/mm3 (0.16-1.47); MONOCYTES PERCENT AUTO 5 % (4-13); Mean Corpuscular HGB Conc 35.5 g/dL (31.5-36.5); Mean Corpuscular Volume 90 fL (80-100); Mean Platelet Volume 11.9 fL (9.1-12.4); NEUTROPHILS PERCENT AUTO 88 % (41-73); RDW Coefficient Variation 14.6 % (11.7-14.2); RDW Standard Deviation 48.9 fL (35.1-46.3); Red Blood Cell Count 4.16 M/mm3 (4.30-5.90); White Blood Cell Count 5.22 K/mm3 (4.00-11.30)
[2023-08-09 00:37] LABS: Platelet Count 36 K/mm3 (150-400)
[2023-08-09 00:47] LABS: Anti-Xa UFH, PHA Monitoring <0.10 IU/mL; International Normalized Ratio 1.77
[2023-08-09 01:35] LABS: Albumin, Blood 3.4 g/dL (3.4-5.0); Albumin/Globulin Ratio 0.8 (0.8-1.8); Bilirubin, Total 1.2 mg/dL (0.1-1.0); Bun/Creatinine Ratio 11.8 (12.0-20.0); Calcium, Blood 8.8 mg/dL (8.5-10.1); Creatinine, Blood 0.59 mg/dL (0.60-1.20); Globulin, Blood 4.2 g/dL (2.2-4.0); Potassium, Blood 4.1 mmol/L (3.5-5.5); Total Protein, Blood 7.6 g/dL (6.4-8.2)
--- NOTE | 2023-08-09 03:55 | NUR ---
Shift Summary Mr. Martinez is alert and oreinted x 4. He continuously complained of pain early in the shift. He was given prn pain medication as allowed. He ambulated to the bathroom and had a large formed BM. It was noted around midnight that he pulled the IV out that had heparin drip infusing to it. The infusion was moved to the IV in the right forearm. He went to sleep around 12:30 am. His biliary drain is patent with red drainage noted. 200 cc was emptied from the drainage bag. His respirations are regular and unlabored. Skin is warm and dry. Bed is in low postion with side rails up x 2 and call light in reach.
[2023-08-09 03:57] VITALS: BP 128/82
[2023-08-09] MEDS ORDERED: Dose Adjust by Pharmacy XX STA (07:44)
[2023-08-09 08:01] VITALS: BP 126/85
[2023-08-09] MEDS ORDERED: HYDROmorphone HCl/Pf 1MG SYR IV PRN (09:30)
[2023-08-09] MEDS ORDERED: OxyCODONE HCL 5 MG TAB PO PRN (09:30)
[2023-08-09 15:04] VITALS: BP 128/85
--- NOTE | 2023-08-09 17:49 | NUR ---
SHIFT SUMMARY: PT IS A 58 YEAR OLD MALE ALERT AND ORIENTED X4, 1PERSON/SBA, HERE FOR ACUTE CHOLECYSTITIS; HAS A CHOLECYSTOSTOMY TUBE, WAS FOUND TO HAVE A MESENTERIC VEIN OCCULSION ON IMAGING AND STARTED ON HEPARIN DRIP-TRANSITIONING TO COUMANDIN, AND C/O RIGHT HIP PAIN-HX OF RIGHT SIDE ARTHROPLASTY. PAIN MANAGEMENT, BRIDGING TO COUMANDIN WITH HEPARIN DRIP, POSSIBLE CHOLECYSTECTOMY OH, AND MRI OF RIGHT HIP FOR 1829 (08/09/23) WILL NEED TO CALL PHARMACY OF WHEN HEPARIN DRIP WILL BE STOPPED AND STARTED ONCE PATIENT RETURNS FROM MRI TO DETERMINE IF DOSE NEEDS ADJUSTED BASED ON DURATION STOPPED. PER MRI SHOULD ONLY TAKE 30 MIN TO COMPLETE TEST. PATIENT STATES THAT HE HAS BEEN UP TODAY; DID NOT WITNESS THIS. HE HAS BEEN USING HIS URINAL TO VOID. HE REFUSED TO WORK WITH PT TODAY DUE TO PAIN. HE IS IN BED, CALL LIGHT WITHIN REACH, FAMILY MEMBER AT BEDSIDE, NO SIGNS OR SYMPTOMS OF DISTRESS. PLAN OF CARE ONGOING.
[2023-08-09] MEDS ORDERED: Warfarin Sodium 5 MG Tab PO ONE (18:00)
[2023-08-09 20:08] VITALS: BP 142/82
[2023-08-10 04:01] VITALS: BP 120/83
[2023-08-10 05:02] LABS: Hematocrit 33.8 % (37.0-53.0); Hemoglobin 11.9 g/dL (13.5-17.5); Mean Platelet Volume 11.7 fL (9.1-12.4); Platelet Count 51 K/mm3 (150-400)
--- NOTE | 2023-08-10 05:04 | NUR ---
Shift Summary Patient is alert and oriented x 4. Respirations regular and unlabored. Skin warm and dry. He has an IV in his right forearm with Heparin drip infusing at 32.8 ml/hr. He continues to complain of severe pain in his right side and right leg. He routinely gets prn pain medication as ordered. He has a biliary drain on the right side with a small amount of pink tinged drainage noted in the drainage bag. He ambulates with a Walker and standby assist.
[2023-08-10 05:32] LABS: Anti-Xa UFH, PHA Monitoring 0.31 IU/mL; International Normalized Ratio 2.52; Prothrombin Time Results 25.1 Sec (9.7-11.5)
[2023-08-10 07:39] VITALS: BP 110/61
[2023-08-10 17:09] VITALS: BP 108/73
[2023-08-10] MEDS ORDERED: Warfarin Sodium 2.5 MG Tab PO SCH (18:00)
--- NOTE | 2023-08-10 18:00 | NUR ---
SHIFT SUMMARY PATIENT ALERT AND INTERACTIVE. PATIENT PAIN BETTER CONTROLLED TODAY. PATIENT NOT YELLING OR CRYING TODAY. PATIENT CONTINUES TO BE MEDICATED WITH ORAL AND IV PAIN MEDICATIONS TO CONTROL PAIN. IV HEPARIN GTT DC'D. PATIENT NOW ON COUMADIN. GASTRIC DRAIN DRAINING SEROSANG FLUID. NO BRUISING VISIBLE ON R HIP OR THIGH. PAIN SENSITIVE TO MOVEMENT AND TOUCH. PULSES PALPABLE IN LEG. PATIENT ABLE TO MOVE R FOOT WITHOUT PAIN. PATIENT CONTINUES TO HAVE A POOR APPETITE. PATIENT STATES HE JUST DOESNT HAVE AN INTEREST TO EAT. PROVIDED EDUCATION ON THE IMPORTANCE OF CALORIC INTAKE TO HELP WITH HEALING AND ENERGY. PROVIDED EDUCATION ON THE IMPORTANCE OF FLUID INTAKE TO PREVENT CONSTIPATION WITH DECREASED ACTIVITY AND PAIN MEDICATIONS.
[2023-08-10 19:50] VITALS: BP 120/70
[2023-08-11 03:15] VITALS: BP 101/66
--- NOTE | 2023-08-11 04:10 | NUR ---
Shift Summary Patient is a 53 year old male that was admitted with abdominal pain and an occlusion of the mesinteric vein. His heparin drip was discontinued yesterday and he was changed to po anticoagulants. He is alert and oriented x 4. Respirations are regular and unlabored. Skin is warm and dry. He has a biliary drain on the right side that has a scant amount of pink drainage. He continues to complain of pain in his left side, hip, and leg. He is given prn pain medication as ordered. He has an IV in his left wrist. The IV in his left forearm was removed due to inflammation at the site and pain with flushing. His sister was in to visit during the first part of this shift. He does not seem to be as anxious as he was yesterday.
[2023-08-11] MEDS ORDERED: Pantoprazole Sodium 40 MG Tab PO SCH (06:00)
[2023-08-11 06:10] LABS: International Normalized Ratio 2.22; Prothrombin Time Results 22.3 Sec (9.7-11.5)
[2023-08-11 08:02] VITALS: BP 97/67
[2023-08-11 08:59] LABS: BASOPHILS ABSOLUTE AUTO 0.04 K/mm3 (0.00-0.23); BASOPHILS PERCENT AUTO 1 % (0-2); EOSINOPHILS ABSOLUTE AUTO 0.13 K/mm3 (0.00-0.68); EOSINOPHILS PERCENT AUTO 2 % (0-6); Hematocrit 30.3 % (37.0-53.0); Hemoglobin 10.5 g/dL (13.5-17.5); IMMATURE GRAN ABSOLUTE AUTO 0.02 K/mm3 (0.00-0.10); IMMATURE GRAN PERCENT AUTO 0 % (0-1); LYMPHOCYTES PERCENT AUTO 8 % (21-46); MONOCYTES ABSOLUTE AUTO 0.73 K/mm3 (0.16-1.47); MONOCYTES PERCENT AUTO 10 % (4-13); Mean Corpuscular HGB Conc 34.7 g/dL (31.5-36.5); Mean Corpuscular Volume 92 fL (80-100); Mean Platelet Volume 12.8 fL (9.1-12.4); NEUTROPHILS ABSOLUTE AUTO 5.75 K/mm3 (1.96-9.15); NEUTROPHILS PERCENT AUTO 79 % (41-73); RDW Coefficient Variation 14.6 % (11.7-14.2); RDW Standard Deviation 49.2 fL (35.1-46.3); Red Blood Cell Count 3.28 M/mm3 (4.30-5.90); White Blood Cell Count 7.27 K/mm3 (4.00-11.30)
[2023-08-11 09:15] LABS: Platelet Count 44 K/mm3 (150-400)
[2023-08-11 09:31] LABS: Albumin, Blood 2.8 g/dL (3.4-5.0); Albumin/Globulin Ratio 0.7 (0.8-1.8); Bilirubin, Total 1.9 mg/dL (0.1-1.0); Bun/Creatinine Ratio 14.8 (12.0-20.0); Calcium, Blood 8.7 mg/dL (8.5-10.1); Creatinine, Blood 0.68 mg/dL (0.60-1.20); Globulin, Blood 3.9 g/dL (2.2-4.0); Magnesium, Blood 2.1 mg/dL (1.6-2.4); Percent Saturation 19.6 % (20.0-50.0); Phosphorus, Blood 2.7 mg/dL (2.5-4.9); Potassium, Blood 3.9 mmol/L (3.5-5.5); Total Protein, Blood 6.7 g/dL (6.4-8.2)
[2023-08-11] MEDS ORDERED: HYDROmorphone HCl/Pf 1MG SYR IV PRN (14:35)
[2023-08-11 16:59] VITALS: BP 120/76
--- NOTE | 2023-08-11 17:20 | NUR ---
SHIFT SUMMARY PT A&OX4, VSS, 1P ASSIST W/ FWW, TOLERATING PO, VOIDING, AND PAIN MANAGED PER EMAR. CHOLECYSTOSTOMY DRAIN IS DRAINING AND PATENT. DRESSING CHANGED THIS SHIFT. PLT CRITICAL LAB OF 44 THIS SHIFT AND NOTIFIED. NO OTHER ACUTE CHANGES THIS SHIFT. CALL LIGHT WITHIN REACH AND PT ABLE TO MAKE NEEDS KNOWN.
[2023-08-11] MEDS ORDERED: Warfarin Sodium 5 MG Tab PO SCH (18:00)
[2023-08-11 19:56] VITALS: BP 126/68
[2023-08-12 04:18] VITALS: BP 92/46
--- NOTE | 2023-08-12 04:38 | NUR ---
SHIFT SUMMARY; PATIENT HAS EPISODE OF ANGER DURING NOC SHIFT. HE YELLS AT RN SAYS "I AM GOING HOME" "I AM CALLING SOMEONE TO COME GET ME" "YOU ARE WANTING ME TO LEAVE BEFORE SUNDAY" ATTEMPT TO CALM YOLI IS SUCCESSFUL AFTER HE CALLS HIS FAMILY AND THEY REFUSE TO COME GET HIM TONIGHT. PATIENT ASKS FOR PAIN MEDS AGAIN AT 0430 AND ACCPETS OXYCODONE 10MG PO. HE APPEARS MUCH MORE CALM AND ASKS FOR SNACK. WILL CONTINUE TO MONITOR THIS PATIENT UNTIL REPORT AND HAND OFF AT SHIFT CHANGE. .
[2023-08-12 04:51] LABS: BASOPHILS ABSOLUTE AUTO 0.01 K/mm3 (0.00-0.23); BASOPHILS PERCENT AUTO 0 % (0-2); EOSINOPHILS ABSOLUTE AUTO 0.15 K/mm3 (0.00-0.68); EOSINOPHILS PERCENT AUTO 3 % (0-6); Hematocrit 27.4 % (37.0-53.0); Hemoglobin 9.6 g/dL (13.5-17.5); IMMATURE GRAN ABSOLUTE AUTO 0.02 K/mm3 (0.00-0.10); IMMATURE GRAN PERCENT AUTO 0 % (0-1); LYMPHOCYTES ABSOLUTE AUTO 0.54 K/mm3 (0.84-5.20); LYMPHOCYTES PERCENT AUTO 11 % (21-46); MONOCYTES ABSOLUTE AUTO 0.44 K/mm3 (0.16-1.47); MONOCYTES PERCENT AUTO 9 % (4-13); Mean Corpuscular HGB 32.2 pg (26.0-34.0); Mean Corpuscular Volume 92 fL (80-100); NEUTROPHILS ABSOLUTE AUTO 3.67 K/mm3 (1.96-9.15); NEUTROPHILS PERCENT AUTO 76 % (41-73); Platelet Count 51 K/mm3 (150-400); RDW Coefficient Variation 14.1 % (11.7-14.2); RDW Standard Deviation 47.3 fL (35.1-46.3); Red Blood Cell Count 2.98 M/mm3 (4.30-5.90); White Blood Cell Count 4.83 K/mm3 (4.00-11.30)
[2023-08-12 05:20] LABS: International Normalized Ratio 1.68; Prothrombin Time Results 17.1 Sec (9.7-11.5)
[2023-08-12 06:00] LABS: Albumin, Blood 2.6 g/dL (3.4-5.0); Albumin/Globulin Ratio 0.7 (0.8-1.8); Bilirubin, Total 1.5 mg/dL (0.1-1.0); Bun/Creatinine Ratio 19.9 (12.0-20.0); Calcium, Blood 8.8 mg/dL (8.5-10.1); Creatinine, Blood 0.65 mg/dL (0.60-1.20); Globulin, Blood 3.9 g/dL (2.2-4.0); Potassium, Blood 3.7 mmol/L (3.5-5.5); Total Protein, Blood 6.5 g/dL (6.4-8.2)
[2023-08-12 07:42] VITALS: BP 112/75
[2023-08-12 15:52] VITALS: BP 104/59
--- NOTE | 2023-08-12 17:55 | NUR ---
SHIFT SUMMARY AND THIS NURSE DISCUSSED TRANSITIONING OFF OF IV PAIN MEDICATION TO ORAL THIS AM. PT DEMONSTRATED UNDERSTANDING AND TOLERATED IT WELL T/O SHIFT. PT WORKED W/ PHYSICAL THERAPY THIS SHIFT, SEE THERAPY NOTES. NO OTHER ACUTE CHANGES. CALL LIGHT WITHIN REACH AND PT ABLE TO MAKE NEEDS KNOWN.
[2023-08-12] MEDS ORDERED: Warfarin Sodium 7.5 MG Tab PO SCH (18:00)
[2023-08-12 19:35] VITALS: BP 111/64
[2023-08-13 03:18] VITALS: BP 103/63
[2023-08-13 04:44] LABS: BASOPHILS ABSOLUTE AUTO 0.02 K/mm3 (0.00-0.23); BASOPHILS PERCENT AUTO 1 % (0-2); EOSINOPHILS ABSOLUTE AUTO 0.15 K/mm3 (0.00-0.68); EOSINOPHILS PERCENT AUTO 4 % (0-6); Hematocrit 25.9 % (37.0-53.0); IMMATURE GRAN ABSOLUTE AUTO 0.02 K/mm3 (0.00-0.10); IMMATURE GRAN PERCENT AUTO 1 % (0-1); LYMPHOCYTES ABSOLUTE AUTO 0.35 K/mm3 (0.84-5.20); LYMPHOCYTES PERCENT AUTO 10 % (21-46); MONOCYTES ABSOLUTE AUTO 0.34 K/mm3 (0.16-1.47); MONOCYTES PERCENT AUTO 9 % (4-13); Mean Corpuscular HGB 31.9 pg (26.0-34.0); Mean Corpuscular HGB Conc 34.7 g/dL (31.5-36.5); Mean Corpuscular Volume 92 fL (80-100); Mean Platelet Volume 11.8 fL (9.1-12.4); NEUTROPHILS ABSOLUTE AUTO 2.76 K/mm3 (1.96-9.15); NEUTROPHILS PERCENT AUTO 76 % (41-73); Platelet Count 54 K/mm3 (150-400); RDW Coefficient Variation 14.3 % (11.7-14.2); Red Blood Cell Count 2.82 M/mm3 (4.30-5.90); White Blood Cell Count 3.64 K/mm3 (4.00-11.30)
[2023-08-13 04:59] LABS: International Normalized Ratio 1.56
[2023-08-13 05:00] LABS: Albumin, Blood 2.6 g/dL (3.4-5.0); Albumin/Globulin Ratio 0.7 (0.8-1.8); Bilirubin, Total 2.2 mg/dL (0.1-1.0); Bun/Creatinine Ratio 20.1 (12.0-20.0); Calcium, Blood 8.2 mg/dL (8.5-10.1); Creatinine, Blood 0.7 mg/dL (0.60-1.20); Globulin, Blood 3.8 g/dL (2.2-4.0); Potassium, Blood 3.7 mmol/L (3.5-5.5); Total Protein, Blood 6.4 g/dL (6.4-8.2)
[2023-08-13 07:38] VITALS: BP 109/70
--- NOTE | 2023-08-13 12:52 | NUR ---
P/T CALLED THIS RN TO BEDSIDE. PT TOLD P/T THAT HE FELL SOME TIME IN THE NIGHT. PT WAS NOTED TO HAVE SWELLING IN THE RIGHT KNEE AND A LARGE BRUISE ON HIS INNER THIGH THAT STARTS MID THIGH ENDS NEAR GROIN. ATTEMPTED TO NOTIFY DR. HERNÁNDEZ HOWEVER UNABLE TO REACH AT THIS TIME. NOTIFIED DR. OROZCO. PER , KEEP PT NONE WEIGHT BARING ON RIGHT LOWER EXTREMETY UNTIL DR. HERNÁNDEZ CAN SEE HIM. NO FURTHER ORDERS AT THIS TIME.
[2023-08-13 15:43] VITALS: BP 127/64
[2023-08-13] MEDS ORDERED: Warfarin Sodium 7.5 MG Tab PO SCH (18:00)
[2023-08-13 19:33] VITALS: BP 113/67
--- NOTE | 2023-08-13 20:06 | NUR ---
PT IS ALERT AND ORIENTED X4. ABLE TO MAKE NEEDS KNOWN. CONFUSED AT TIMES. BED ALARM ON FOR FALL RISK SAFETY. SBA TO BATHROOM. CT COMPLETED OF RLE. PAIN MANAGED PER EMAR. CALL LIGHT IN REACH. PLS SEE PREVIOUS NOTE FOR UPDATES THROUGHOUT THE DAY.
[2023-08-14 02:43] VITALS: BP 126/66
[2023-08-14 04:52] LABS: BASOPHILS ABSOLUTE AUTO 0.03 K/mm3 (0.00-0.23); BASOPHILS PERCENT AUTO 1 % (0-2); EOSINOPHILS ABSOLUTE AUTO 0.15 K/mm3 (0.00-0.68); EOSINOPHILS PERCENT AUTO 5 % (0-6); Hematocrit 26.6 % (37.0-53.0); Hemoglobin 9.2 g/dL (13.5-17.5); IMMATURE GRAN ABSOLUTE AUTO 0.02 K/mm3 (0.00-0.10); IMMATURE GRAN PERCENT AUTO 1 % (0-1); LYMPHOCYTES PERCENT AUTO 15 % (21-46); MONOCYTES ABSOLUTE AUTO 0.37 K/mm3 (0.16-1.47); MONOCYTES PERCENT AUTO 11 % (4-13); Mean Corpuscular HGB 31.9 pg (26.0-34.0); Mean Corpuscular HGB Conc 34.6 g/dL (31.5-36.5); Mean Corpuscular Volume 92 fL (80-100); NEUTROPHILS ABSOLUTE AUTO 2.19 K/mm3 (1.96-9.15); NEUTROPHILS PERCENT AUTO 67 % (41-73); Platelet Count 62 K/mm3 (150-400); RDW Coefficient Variation 14.4 % (11.7-14.2); RDW Standard Deviation 48.2 fL (35.1-46.3); Red Blood Cell Count 2.88 M/mm3 (4.30-5.90); White Blood Cell Count 3.26 K/mm3 (4.00-11.30)
[2023-08-14 04:56] LABS: International Normalized Ratio 1.92; Prothrombin Time Results 19.4 Sec (9.7-11.5)
--- NOTE | 2023-08-14 05:22 | NUR ---
SHIFT SUMMARY ADMITTED FOR ACUTE OCCLUSION OF MESENTERIC VEIN. FULL CODE. WAS ON A HEPARIN DRIP POSSIBLY RESULTING IN RETROPERITONEAL HEMORRHAGE. CHOLECYSTOSTOMY TUBE AND ACCORDION DRAIN PLACED. HE WILL BE PLACED AT SNF WHEN INSURANCE AUTHORIZES. ON CARDIAC DIET, ON RA. STANDBY ASSIST W/FWW. HE STATES HE FELL ON NOC SHIFT PREVIOUS, BED ALARM IS ACTIVE. HX OF DELUSIONARY DISORDER NOTED. HX OF HEPATIC CIRRHOSIS/ASCITES. HE DOES SEE [facility]. IV AND PO PAIN RX GIVEN THIS SHIFT.
[2023-08-14 05:32] LABS: Albumin, Blood 2.5 g/dL (3.4-5.0); Albumin/Globulin Ratio 0.6 (0.8-1.8); Bilirubin, Total 1.8 mg/dL (0.1-1.0); Bun/Creatinine Ratio 18.1 (12.0-20.0); Calcium, Blood 8.3 mg/dL (8.5-10.1); Creatinine, Blood 0.66 mg/dL (0.60-1.20); Globulin, Blood 4.1 g/dL (2.2-4.0); Potassium, Blood 3.7 mmol/L (3.5-5.5); Total Protein, Blood 6.6 g/dL (6.4-8.2)
[2023-08-14 07:39] VITALS: BP 105/65
[2023-08-14] MEDS ORDERED: Lactulose 20 GM/30 ML UDC PO SCH (09:00)
[2023-08-14] MEDS ORDERED: FURO20 PO (13:30)
[2023-08-14] MEDS ORDERED: LACT10SY PO (13:31)
[2023-08-14] MEDS ORDERED: PANT40 PO (13:32)
[2023-08-14] MEDS ORDERED: OXYC10ER PO (13:32)
[2023-08-14] MEDS ORDERED: SPIR50 PO (13:33)
[2023-08-14] MEDS ORDERED: WARF5 PO (13:34)
[2023-08-14] MEDS ORDERED: Warfarin Sodium 5 MG Tab PO ONE (18:00)
--- NOTE | 2023-08-16 09:57 | NUR ---
LATE ENTRY; SHIFT SUMMARY; 08/12/23. PATIENT MEDICATED Q4 HOURS PER HIS REQUEST DURING NOC SHIFT FOR PAIN. PATIENT ASKED FOR ASSIST TO SIT ON EDGE OF BED. HE IS ENCOURAGED TO TRY AND DO MUCH FOR HIMSELF POSSIBLE. PATIENT REFUSES TO GET OUT OF BED TO CHAIR. INSISTS ON LAYING IN BED. USES URINAL FOR COMFORT. SAYS IT IS TOO UNCOMFORTABLE FOR HIM TO STAND. PATIENT HAS EPISODE OF ANGER DURING NOC SHIFT. WANTS INCREASED IV DILAUDID PATIENT IS EDUCATED HE CANNOT GO HOME WITH IV PAIN MEDICATION AND IT IS TOO HIS BENEFIT TO USE PO PAIN MEDICATIONS. PATIENT DID VERBALIZE UNDERSTANDING HOWEVER DID EXPRESS THAT IF "I CANNOT GET IV PAIN MEDS! I AM GOING TO CALL FOR A RIDE AND GO HOME" [facility] CALLED FAMILY WHO DID REFUSE TO COME PICK HIM UP. YOLI SAID HE WILL STAY AND SPEAK WITH MD IN THE AM ABOUT INCREASING HIS IV PAIN MEDICATION. NO FURTHER INCIDENTS WITH THIS PAITENT DURING THE NOC SHIFT. HE SLEPT WELL FOR 3-4 HOURS AT A TIME ONLY ROUSING FOR PAIN MEDICATION.
== END 2023-08-14 13:41 | disposition home health service (06) | DRG 444 ==
LOC: ER 15:19 → MEDS 20:41
PROVIDERS: Family Medicine; Hospitalist; Internal Medicine; Physician Assistant; Student in an Organized Health Care Education/Training Program; ADMIT Internal Medicine
PROC: 0F9430Z Drainage of Gallbladder with Drainage Device, Percutaneous Approach (ICD-10-PCS; principal; 2023-08-02)
DX: K80.00 Calculus of gallbladder with acute cholecystitis without obstruction (principal); G93.41 Metabolic encephalopathy; K55.039 Acute (reversible) ischemia of large intestine, extent unspecified; K68.3 Retroperitoneal hematoma; K76.6 Portal hypertension; I85.10 Secondary esophageal varices without bleeding; D62 Acute posthemorrhagic anemia; R18.8 Other ascites; K74.69 Other cirrhosis of liver; K74.60 Unspecified cirrhosis of liver; Z96.641 Presence of right artificial hip joint; F15.90 Other stimulant use, unspecified, uncomplicated; D69.6 Thrombocytopenia, unspecified; B18.2 Chronic viral hepatitis C; M25.551 Pain in right hip; F12.90 Cannabis use, unspecified, uncomplicated; F22 Delusional disorders; K76.82 Hepatic encephalopathy; Z88.5 Allergy status to narcotic agent; Z88.8 Allergy status to other drugs, medicaments and biological substances; Z98.890 Other specified postprocedural states; Z90.49 Acquired absence of other specified parts of digestive tract; Z87.891 Personal history of nicotine dependence
CPT/HCPCS: 36415; 49405; 71046; 72195; 73552; 73560-RT; 74176; 74177; 76705; 80053; 81003; 82140; 82607; 82728; 82746; 82803; 83540; 83550; 83605; 83615; 83690; 83735; 84100; 84484; 85014; 85018; 85025; 85049; 85520; 85610; 85730; 86850; 86900; 86901; 87070; 87075; 87205; 92610; 93005; 93010; 96361; 96374; 96375; 97110; 97116; 97129; 97162; 97165; 97530; 99285-25; A9270; C9113; J1170; J1644; J2405; J2543; J2765; J3010; J7030; J7050; J7120; Q9967

== ENCOUNTER → 2023-10-19 | Outpatient (CLI) | payer OTHER ==
[~2023-10-19] MED LIST changes: +FURO20 PO; +LACT10SY PO; +OXYC10ER PO; +PANT40 PO; +SPIR50 PO; +WARF5 PO
== END | disposition home or self-care (01) ==
LOC: RAD SHORT 12:49
DX: R30.0 Dysuria (principal)
CPT/HCPCS: 87086

== ENCOUNTER 2023-12-10 12:45 | Emergency (ER) | payer OTHER ==
[~2023-12-10] VITALS: Ht 180.3 cm; Wt 108.0 kg
[2023-12-10] MEDS ORDERED: NS 1,000 ML IV SCH (13:30)
[2023-12-10] MEDS ORDERED: LORazepam 2 MG/ML 1ML Injection IV ONE (13:30)
[2023-12-10] MEDS ORDERED: Cyclobenzaprine5 MG PO (13:42)
[2023-12-10 13:45] LABS: BASOPHILS ABSOLUTE AUTO 0.03 K/mm3 (0.00-0.23); BASOPHILS PERCENT AUTO 1 % (0-2); EOSINOPHILS ABSOLUTE AUTO 0.22 K/mm3 (0.00-0.68); EOSINOPHILS PERCENT AUTO 5 % (0-6); Hematocrit 42.2 % (37.0-53.0); Hemoglobin 14.8 g/dL (13.5-17.5); IMMATURE GRAN ABSOLUTE AUTO 0.02 K/mm3 (0.00-0.10); IMMATURE GRAN PERCENT AUTO 0 % (0-1); LYMPHOCYTES ABSOLUTE AUTO 0.58 K/mm3 (0.84-5.20); LYMPHOCYTES PERCENT AUTO 12 % (21-46); MONOCYTES ABSOLUTE AUTO 0.28 K/mm3 (0.16-1.47); MONOCYTES PERCENT AUTO 6 % (4-13); Mean Corpuscular HGB 32.3 pg (26.0-34.0); Mean Corpuscular HGB Conc 35.1 g/dL (31.5-36.5); Mean Corpuscular Volume 92 fL (80-100); Mean Platelet Volume 10.4 fL (9.1-12.4); NEUTROPHILS ABSOLUTE AUTO 3.79 K/mm3 (1.96-9.15); NEUTROPHILS PERCENT AUTO 77 % (41-73); Platelet Count 53 K/mm3 (150-400); RDW Coefficient Variation 14.8 % (11.7-14.2); RDW Standard Deviation 50.4 fL (35.1-46.3); Red Blood Cell Count 4.58 M/mm3 (4.30-5.90); White Blood Cell Count 4.92 K/mm3 (4.00-11.30)
[2023-12-10 14:14] LABS: Magnesium, Blood 1.7 mg/dL (1.6-2.4)
[2023-12-10 14:19] LABS: Albumin, Blood 3.6 g/dL (3.4-5.0); Albumin/Globulin Ratio 0.7 (0.8-1.8); Bun/Creatinine Ratio 14.4 (12.0-20.0); Calcium, Blood 9.2 mg/dL (8.5-10.1); Creatinine, Blood 0.76 mg/dL (0.60-1.20); Globulin, Blood 4.9 g/dL (2.2-4.0); Phosphorus, Blood 2.2 mg/dL (2.5-4.9); Potassium, Blood 3.7 mmol/L (3.5-5.5); Total Protein, Blood 8.5 g/dL (6.4-8.2)
[2023-12-10 18:20] VITALS: BP 98/69
== END 2023-12-10 18:48 | disposition home or self-care (01) ==
LOC: ER 12:45
PROVIDERS: Physician Assistant
DX: R53.1 Weakness (principal); Z91.81 History of falling; Z79.899 Other long term (current) drug therapy; Z79.01 Long term (current) use of anticoagulants; Z88.5 Allergy status to narcotic agent; Z88.8 Allergy status to other drugs, medicaments and biological substances; Z87.891 Personal history of nicotine dependence; Z96.641 Presence of right artificial hip joint
CPT/HCPCS: 74177; 80053; 82140; 83605; 83735; 84100; 85025; 93005; 93010; 96361; 96374-59; 99285-25; J2060; J7030; Q9967

== ENCOUNTER 2024-01-04 11:27 | Emergency (ER) | payer OTHER ==
[~2024-01-04] VITALS: Ht 180.3 cm; Wt 104.3 kg
[~2024-01-04 11:27] MED LIST changes: +Cyclobenzaprine5 MG PO
[2024-01-04] MEDS ORDERED: ONDA4ODT MM (12:44)
[2024-01-04] MEDS ORDERED: OxyCODONE HCL 5 MG TAB PO ONE (13:00)
[2024-01-04] MEDS ORDERED: Ondansetron HCl 2 MG / ML 2ML Vial IV ONE (13:00)
[2024-01-04 13:18] LABS: BASOPHILS ABSOLUTE AUTO 0.03 K/mm3 (0.00-0.23); BASOPHILS PERCENT AUTO 1 % (0-2); EOSINOPHILS ABSOLUTE AUTO 0.19 K/mm3 (0.00-0.68); EOSINOPHILS PERCENT AUTO 4 % (0-6); Hematocrit 40.3 % (37.0-53.0); Hemoglobin 13.9 g/dL (13.5-17.5); IMMATURE GRAN ABSOLUTE AUTO 0.03 K/mm3 (0.00-0.10); IMMATURE GRAN PERCENT AUTO 1 % (0-1); LYMPHOCYTES ABSOLUTE AUTO 0.51 K/mm3 (0.84-5.20); LYMPHOCYTES PERCENT AUTO 10 % (21-46); MONOCYTES ABSOLUTE AUTO 0.28 K/mm3 (0.16-1.47); MONOCYTES PERCENT AUTO 5 % (4-13); Mean Corpuscular HGB 32.6 pg (26.0-34.0); Mean Corpuscular HGB Conc 34.5 g/dL (31.5-36.5); Mean Corpuscular Volume 95 fL (80-100); Mean Platelet Volume 11.2 fL (9.1-12.4); NEUTROPHILS ABSOLUTE AUTO 4.14 K/mm3 (1.96-9.15); NEUTROPHILS PERCENT AUTO 80 % (41-73); Platelet Count 51 K/mm3 (150-400); RDW Standard Deviation 48.5 fL (35.1-46.3); Red Blood Cell Count 4.26 M/mm3 (4.30-5.90); White Blood Cell Count 5.18 K/mm3 (4.00-11.30)
[2024-01-04 13:33] LABS: International Normalized Ratio 1.05; Prothrombin Time Results 11.2 Sec (9.7-11.5)
[2024-01-04 13:34] LABS: Albumin, Blood 3.6 g/dL (3.4-5.0); Albumin/Globulin Ratio 0.8 (0.8-1.8); Bilirubin, Total 0.8 mg/dL (0.1-1.0); Calcium, Blood 9.5 mg/dL (8.5-10.1); Creatinine, Blood 0.78 mg/dL (0.60-1.20); Globulin, Blood 4.7 g/dL (2.2-4.0); Potassium, Blood 4.3 mmol/L (3.5-5.5); Total Protein, Blood 8.3 g/dL (6.4-8.2)
[2024-01-04 17:30] VITALS: BP 122/93
== END 2024-01-04 18:11 | disposition home or self-care (01) ==
LOC: ER 11:27
PROVIDERS: Emergency Medicine
DX: T85.520A Displacement of bile duct prosthesis, initial encounter (principal); K80.20 Calculus of gallbladder without cholecystitis without obstruction; K76.9 Liver disease, unspecified; Z87.891 Personal history of nicotine dependence; Z79.899 Other long term (current) drug therapy
CPT/HCPCS: 76705; 80053; 82140; 85025; 85610; 96374; 99284-25; A9270; J2405

== ENCOUNTER 2024-01-10 16:34 | Emergency (ER) | payer OTHER ==
[~2024-01-10] VITALS: Ht 180.3 cm; Wt 102.1 kg
[~2024-01-10 16:34] MED LIST changes: +ONDA4ODT MM
[2024-01-10] MEDS ORDERED: Lactated Ringer's 1,000 ML IV ONE (18:15)
[2024-01-10 18:16] LABS: BASOPHILS ABSOLUTE AUTO 0.01 K/mm3 (0.00-0.23); BASOPHILS PERCENT AUTO 0 % (0-2); EOSINOPHILS ABSOLUTE AUTO 0.09 K/mm3 (0.00-0.68); EOSINOPHILS PERCENT AUTO 2 % (0-6); Hematocrit 35.4 % (37.0-53.0); Hemoglobin 12.7 g/dL (13.5-17.5); IMMATURE GRAN ABSOLUTE AUTO 0.01 K/mm3 (0.00-0.10); IMMATURE GRAN PERCENT AUTO 0 % (0-1); LYMPHOCYTES ABSOLUTE AUTO 0.45 K/mm3 (0.84-5.20); LYMPHOCYTES PERCENT AUTO 11 % (21-46); MONOCYTES ABSOLUTE AUTO 0.26 K/mm3 (0.16-1.47); MONOCYTES PERCENT AUTO 6 % (4-13); Mean Corpuscular HGB 33.1 pg (26.0-34.0); Mean Corpuscular HGB Conc 35.9 g/dL (31.5-36.5); Mean Corpuscular Volume 92 fL (80-100); Mean Platelet Volume 10.6 fL (9.1-12.4); NEUTROPHILS ABSOLUTE AUTO 3.27 K/mm3 (1.96-9.15); NEUTROPHILS PERCENT AUTO 80 % (41-73); Platelet Count 59 K/mm3 (150-400); RDW Coefficient Variation 13.6 % (11.7-14.2); Red Blood Cell Count 3.84 M/mm3 (4.30-5.90); White Blood Cell Count 4.09 K/mm3 (4.00-11.30)
[2024-01-10 18:30] LABS: Albumin, Blood 3.2 g/dL (3.4-5.0); Albumin/Globulin Ratio 0.7 (0.8-1.8); Bilirubin, Total 1.2 mg/dL (0.1-1.0); Bun/Creatinine Ratio 16.2 (12.0-20.0); Calcium, Blood 8.8 mg/dL (8.5-10.1); Creatinine, Blood 0.74 mg/dL (0.60-1.20); Globulin, Blood 4.7 g/dL (2.2-4.0); Potassium, Blood 3.8 mmol/L (3.5-5.5); Total Protein, Blood 7.9 g/dL (6.4-8.2)
[2024-01-10 20:15] VITALS: BP 116/91
== END 2024-01-10 20:23 | disposition home or self-care (01) ==
LOC: ER 16:34
PROVIDERS: Emergency Medicine
DX: K76.82 Hepatic encephalopathy (principal); M25.561 Pain in right knee; G89.29 Other chronic pain
CPT/HCPCS: 73562-RT; 80053; 82140; 85025; 96360; 99285-25; J7120

== ENCOUNTER 2024-04-02 14:39 | Emergency (ER) | payer OTHER ==
[~2024-04-02] VITALS: Ht 180.3 cm; Wt 101.2 kg
[2024-04-02 14:58] VITALS: BP 142/79
== END 2024-04-02 15:30 | disposition home or self-care (01) ==
LOC: ER 14:39
DX: T83.030A Leakage of cystostomy catheter, initial encounter (principal); Z87.891 Personal history of nicotine dependence; Z79.899 Other long term (current) drug therapy
CPT/HCPCS: 99282

== ENCOUNTER 2024-06-02 15:44 | Emergency (ER) | payer OTHER ==
[~2024-06-02] VITALS: Ht 180.3 cm; Wt 113.4 kg
[2024-06-02 15:54] VITALS: BP 130/95
== END 2024-06-02 16:39 | disposition home or self-care (01) ==
LOC: ER 15:44
DX: T85.590A Other mechanical complication of bile duct prosthesis, initial encounter (principal); C22.8 Malignant neoplasm of liver, primary, unspecified as to type; Z79.899 Other long term (current) drug therapy
CPT/HCPCS: 99282

== ENCOUNTER 2024-08-08 12:49 | Emergency (ER) | payer OTHER ==
[~2024-08-08] VITALS: Ht 180.3 cm; Wt 113.4 kg
[2024-08-08 13:32] LABS: BASOPHILS ABSOLUTE AUTO 0.02 K/mm3 (0.00-0.23); BASOPHILS PERCENT AUTO 0 % (0-2); EOSINOPHILS ABSOLUTE AUTO 0.07 K/mm3 (0.00-0.68); EOSINOPHILS PERCENT AUTO 1 % (0-6); Hematocrit 44.1 % (37.0-53.0); Hemoglobin 15.9 g/dL (13.5-17.5); IMMATURE GRAN ABSOLUTE AUTO 0.05 K/mm3 (0.00-0.10); IMMATURE GRAN PERCENT AUTO 1 % (0-1); LYMPHOCYTES ABSOLUTE AUTO 0.46 K/mm3 (0.84-5.20); LYMPHOCYTES PERCENT AUTO 7 % (21-46); MONOCYTES ABSOLUTE AUTO 0.71 K/mm3 (0.16-1.47); MONOCYTES PERCENT AUTO 10 % (4-13); Mean Corpuscular HGB 32.4 pg (26.0-34.0); Mean Corpuscular HGB Conc 36.1 g/dL (31.5-36.5); Mean Corpuscular Volume 90 fL (80-100); Mean Platelet Volume 10.6 fL (9.1-12.4); NEUTROPHILS PERCENT AUTO 81 % (41-73); RDW Coefficient Variation 13.8 % (11.7-14.2); RDW Standard Deviation 45.1 fL (35.1-46.3); Red Blood Cell Count 4.91 M/mm3 (4.30-5.90); White Blood Cell Count 6.81 K/mm3 (4.00-11.30)
[2024-08-08 13:36] LABS: Platelet Count 29 K/mm3 (150-400)
[2024-08-08 13:58] LABS: Albumin/Globulin Ratio 0.6 (0.8-1.8); Bilirubin, Total 4.6 mg/dL (0.1-1.0); Bun/Creatinine Ratio 22.4 (12.0-20.0); Calcium, Blood 8.6 mg/dL (8.5-10.1); Creatinine, Blood 0.72 mg/dL (0.60-1.20); Globulin, Blood 4.9 g/dL (2.2-4.0); Potassium, Blood 3.8 mmol/L (3.5-5.5); Total Protein, Blood 7.9 g/dL (6.4-8.2)
[2024-08-08] MEDS ORDERED: FentaNYL 12 MCG/HR Patch TOP ONE (15:55)
[2024-08-08] MEDS ORDERED: FENTANYL1 EA12 TOP (15:56)
[2024-08-08 16:00] VITALS: BP 126/88
[2024-08-08] MEDS ORDERED: RX Prepack 2 Sprays Naloxone HCL 4 MG/SPRAY UD ONE (16:00)
== END 2024-08-08 16:24 | disposition home or self-care (01) ==
LOC: ER 12:49
PROVIDERS: Physician Assistant
DX: G89.3 Neoplasm related pain (acute) (chronic) (principal); C22.7 Other specified carcinomas of liver; K14.8 Other diseases of tongue; T45.1X5A Adverse effect of antineoplastic and immunosuppressive drugs, initial encounter; Z87.891 Personal history of nicotine dependence; Z79.899 Other long term (current) drug therapy
CPT/HCPCS: 71046; 76705; 80053; 84484; 85025; 93005; 93010; 99284-25; A9270

== ENCOUNTER 2024-08-30 08:42 | Emergency (ER) | payer OTHER ==
[~2024-08-30] VITALS: Ht 180.3 cm; Wt 97.1 kg
[~2024-08-30 08:42] MED LIST changes: +FENTANYL1 EA12 TOP
[2024-08-30] MEDS ORDERED: MORPHINE SULFAT15 M1 PO (09:40)
[2024-08-30] MEDS ORDERED: SORAFENIB200 MG PO (09:40)
[2024-08-30 09:59] LABS: BASOPHILS ABSOLUTE AUTO 0.04 K/mm3 (0.00-0.23); BASOPHILS PERCENT AUTO 1 % (0-2); EOSINOPHILS ABSOLUTE AUTO 0.17 K/mm3 (0.00-0.68); EOSINOPHILS PERCENT AUTO 3 % (0-6); Hematocrit 45.8 % (37.0-53.0); Hemoglobin 16.5 g/dL (13.5-17.5); IMMATURE GRAN ABSOLUTE AUTO 0.01 K/mm3 (0.00-0.10); IMMATURE GRAN PERCENT AUTO 0 % (0-1); LYMPHOCYTES ABSOLUTE AUTO 0.65 K/mm3 (0.84-5.20); LYMPHOCYTES PERCENT AUTO 11 % (21-46); MONOCYTES ABSOLUTE AUTO 0.28 K/mm3 (0.16-1.47); MONOCYTES PERCENT AUTO 5 % (4-13); Mean Corpuscular HGB 32.6 pg (26.0-34.0); Mean Corpuscular Volume 91 fL (80-100); Mean Platelet Volume 10.7 fL (9.1-12.4); NEUTROPHILS PERCENT AUTO 80 % (41-73); Platelet Count 52 K/mm3 (150-400); RDW Coefficient Variation 15.3 % (11.7-14.2); RDW Standard Deviation 49.9 fL (35.1-46.3); Red Blood Cell Count 5.06 M/mm3 (4.30-5.90); White Blood Cell Count 5.85 K/mm3 (4.00-11.30)
[2024-08-30 10:16] LABS: Albumin, Blood 2.9 g/dL (3.4-5.0); Albumin/Globulin Ratio 0.5 (0.8-1.8); Bilirubin, Total 2.5 mg/dL (0.1-1.0); Bun/Creatinine Ratio 19.4 (12.0-20.0); Calcium, Blood 8.7 mg/dL (8.5-10.1); Creatinine, Blood 0.77 mg/dL (0.60-1.20); Globulin, Blood 5.8 g/dL (2.2-4.0); Potassium, Blood 4.1 mmol/L (3.5-5.5); Total Protein, Blood 8.7 g/dL (6.4-8.2)
[2024-08-30] MEDS ORDERED: Lactated Ringer's 1,000 ML IV ONE (10:55)
[2024-08-30 11:30] VITALS: BP 129/93
[2024-08-30] MEDS ORDERED: Triamcinolone A15 G4 TOP (11:40)
== END 2024-08-30 11:50 | disposition home or self-care (01) ==
LOC: ER 08:42
PROVIDERS: Emergency Medicine
DX: T83.83XA Hemorrhage due to genitourinary prosthetic devices, implants and grafts, initial encounter (principal); R07.9 Chest pain, unspecified; L30.9 Dermatitis, unspecified; Z87.891 Personal history of nicotine dependence; Z79.899 Other long term (current) drug therapy
CPT/HCPCS: 74177; 80053; 83690; 84484; 85025; 93005; 93010; 99285-25; Q9967

== ENCOUNTER 2025-01-16 07:28 | Emergency (ER) | payer OTHER ==
[~2025-01-16] VITALS: Ht 180.3 cm; Wt 110.2 kg
[~2025-01-16 07:28] MED LIST changes: +MORPHINE SULFAT15 M1 PO; +SORAFENIB200 MG PO; +Triamcinolone A15 G4 TOP
[2025-01-16] MEDS ORDERED: Morphine Sulfate 4 MG/1 ML Injection IV ONE (08:50)
[2025-01-16] MEDS ORDERED: Ondansetron HCl 2 MG / ML 2ML Vial IV ONE (08:55)
[2025-01-16 08:56] LABS: BASOPHILS ABSOLUTE AUTO 0.03 K/mm3 (0.00-0.23); BASOPHILS PERCENT AUTO 1 % (0-2); EOSINOPHILS ABSOLUTE AUTO 0.13 K/mm3 (0.00-0.68); EOSINOPHILS PERCENT AUTO 3 % (0-6); Hematocrit 32.7 % (37.0-53.0); Hemoglobin 11.5 g/dL (13.5-17.5); IMMATURE GRAN ABSOLUTE AUTO 0.01 K/mm3 (0.00-0.10); IMMATURE GRAN PERCENT AUTO 0 % (0-1); LYMPHOCYTES ABSOLUTE AUTO 0.61 K/mm3 (0.84-5.20); LYMPHOCYTES PERCENT AUTO 15 % (21-46); MONOCYTES ABSOLUTE AUTO 0.22 K/mm3 (0.16-1.47); MONOCYTES PERCENT AUTO 6 % (4-13); Mean Corpuscular HGB Conc 35.2 g/dL (31.5-36.5); Mean Corpuscular Volume 102 fL (80-100); NEUTROPHILS ABSOLUTE AUTO 2.98 K/mm3 (1.96-9.15); NEUTROPHILS PERCENT AUTO 75 % (41-73); NRBC ABSOLUTE 0.00 K/mm3 (0.00-0.02); NRBC Auto 0.0 /100 WBC (0.0-0.2); RDW Coefficient Variation 15.9 % (11.7-14.2); RDW Standard Deviation 59.5 fL (35.1-46.3)
[2025-01-16 09:03] LABS: Platelet Count 33 K/mm3 (150-400)
[2025-01-16 09:05] LABS: Alanine Aminotransfer (ALT/SGP 52.0 U/L (12-78); Albumin, Blood 3.3 g/dL (3.4-5.0); Albumin/Globulin Ratio 0.8 (0.8-1.8); Anion Gap 7.0 mmol/L (3-11); Aspartate Aminotrans (AST/SGOT 69.0 U/L (12-37); Bilirubin, Total 1.0 mg/dL (0.1-1.0); Blood Urea Nitrogen 17.0 mg/dL (8-24); CO2, Blood 26.0 mmol/L (21-32); Calcium, Blood 8.1 mg/dL (8.5-10.1); Chloride, Blood 107.0 mmol/L (98-108); Creatinine, Blood 1.43 mg/dL (0.60-1.20); Globulin, Blood 4.1 g/dL (2.2-4.0); Glucose, Blood 108.0 mg/dL (70-99); Potassium, Blood 3.6 mmol/L (3.5-5.5); Sodium, Blood 136.0 mmol/L (136-145); Total Protein, Blood 7.4 g/dL (6.4-8.2)
[2025-01-16 10:30] VITALS: BP 102/68
== END 2025-01-16 11:45 | disposition home or self-care (01) ==
LOC: ER 07:28
PROVIDERS: Emergency Medicine
DX: R79.9 Abnormal finding of blood chemistry, unspecified (principal); Z90.49 Acquired absence of other specified parts of digestive tract; Z88.8 Allergy status to other drugs, medicaments and biological substances; Z87.891 Personal history of nicotine dependence
CPT/HCPCS: 36415; 80053; 83605; 85025; 87040; 96374; 96375; 99283-25; J2270; J2405

== ENCOUNTER → 2025-01-25 | Outpatient (CLI) | payer OTHER ==
[2025-01-25 11:57] LABS: BASOPHILS ABSOLUTE AUTO 0.04 K/mm3 (0.00-0.23); BASOPHILS PERCENT AUTO 1 % (0-2); EOSINOPHILS ABSOLUTE AUTO 0.09 K/mm3 (0.00-0.68); EOSINOPHILS PERCENT AUTO 2 % (0-6); Hematocrit 31.8 % (37.0-53.0); Hemoglobin 11.2 g/dL (13.5-17.5); IMMATURE GRAN ABSOLUTE AUTO 0.02 K/mm3 (0.00-0.10); IMMATURE GRAN PERCENT AUTO 1 % (0-1); LYMPHOCYTES ABSOLUTE AUTO 0.50 K/mm3 (0.84-5.20); LYMPHOCYTES PERCENT AUTO 12 % (21-46); MONOCYTES ABSOLUTE AUTO 0.20 K/mm3 (0.16-1.47); MONOCYTES PERCENT AUTO 5 % (4-13); Mean Corpuscular HGB Conc 35.2 g/dL (31.5-36.5); Mean Corpuscular Volume 101 fL (80-100); NEUTROPHILS ABSOLUTE AUTO 3.51 K/mm3 (1.96-9.15); NEUTROPHILS PERCENT AUTO 80 % (41-73); NRBC ABSOLUTE 0.00 K/mm3 (0.00-0.02); NRBC Auto 0.0 /100 WBC (0.0-0.2); RDW Coefficient Variation 15.3 % (11.7-14.2); RDW Standard Deviation 56.9 fL (35.1-46.3)
[2025-01-25 12:11] LABS: Alanine Aminotransfer (ALT/SGP 41.0 U/L (12-78); Albumin, Blood 3.3 g/dL (3.4-5.0); Albumin/Globulin Ratio 0.8 (0.8-1.8); Anion Gap 11.0 mmol/L (3-11); Aspartate Aminotrans (AST/SGOT 68.0 U/L (12-37); Bilirubin, Total 1.2 mg/dL (0.1-1.0); Blood Urea Nitrogen 9.0 mg/dL (8-24); CO2, Blood 26.0 mmol/L (21-32); Calcium, Blood 8.7 mg/dL (8.5-10.1); Chloride, Blood 101.0 mmol/L (98-108); Creatinine, Blood 1.36 mg/dL (0.60-1.20); Globulin, Blood 4.0 g/dL (2.2-4.0); Glucose, Blood 112.0 mg/dL (70-99); Potassium, Blood 3.7 mmol/L (3.5-5.5); Sodium, Blood 134.0 mmol/L (136-145); Total Protein, Blood 7.3 g/dL (6.4-8.2)
[2025-01-25 12:23] LABS: Platelet Count 33 K/mm3 (150-400)
== END ==
LOC: LAB 11:34 → LAB SHORT 11:34
PROVIDERS: Emergency Medicine
DX: R10.9 Unspecified abdominal pain (principal)
CPT/HCPCS: 80053; 83690; 85025